=== PATIENT | male | born 1960 | race Caucasian/White ===

== ENCOUNTER 2017-08-13 09:01 | Day surgery (SDC) | payer OTHER, SELFPAY ==
[2017-08-10 09:32] VITALS: BMI 45.6
[2017-08-13] VITALS (7 sets, daily range): BP systolic 99–129; BP diastolic 43–72; PULSE 58–68; RESP 8–16; TEMP 36.3–37; O2SAT 93–96; BMI 45.6
[2017-08-13] MEDS: LACTATED RINGERS 1,000 ML 42 ML IV (11:06)
[2017-08-13] MEDS: CEFAZOLIN 2 GM/100 ML FROZ.PIGGY IV (11:35)
[2017-08-13] MEDS: BUPIVACAINE 0.5% W/ EPI (PF) 30 ML VIAL INJ (12:15)
--- NOTE | 2017-08-13 12:22 | P.OP_ITS ---
Operative Date/Time/Diagnoses - Date of procedure: 08/13/17 Time of procedure: 12:20 Pre-op diagnosis: Left CTS Post-op diagnosis: same Procedure & Clinicians Procedure: Left carpal tunnel release Same procedure as scheduled: Yes Indications: Left carpal tunnel Surgeon: Juwan Pérez Click Yes if Unassisted: Yes Anesthesia Type: General Operative Notes Findings: Compression of the median nerve at the carpal tunnel Closure Type: primary Specimen(s): none sent Estimated Blood Loss (mL): 0 Blood products transfused: none Tourniquet time (min): 10 Procedure in detail: On date of service, the patient was met in the holding area. Patients operative site was signed and witnessed by the OR staff. The surgery was once again discussed with the patient, and any remaining questions they had were answered fully. Patient was taken back to the operating theater and placed on the operating table in a supine position. Great care was taken to ensure that all bony prominences were carefully padded. A well-padded tourniquet was placed up along the upper extremity. A timeout was performed to verify patient's name, procedure, and operative site. The arm was then prepped and draped in the normal sterile fashion. A 15 blade was used to incise through skin In the center of the palm. Pickups and tenotomy scissors were used to dissect down until the palmar fascia was visualized. The palmar fascia was then sharply incised using a 15 blade. This gave us good visualization of the carpal ligament. A small opening was made into the carpal ligament, and a curved hemostat was placed into that opening. A 15 blade was then used to sharply incise the carpal ligament with the structures beneath being protected by the hemostat. Pickups and Metzenbaum scissors were used to complete the decompression both distally and proximally. This provided a complete decompression of the median nerve. The wound was then irrigated and closed with nylon. The hand was then cleaned, dried, and dressed. Patient was taken to the PACU in stable condition. Complications: none Condition: stable Disposition: PACU Plan for aftercare: No restrictions of range of motion. No lifting more than 2- 3 lb for 2 weeks.
--- NOTE | 2017-08-13 13:39 | SUR.PHASEII ---
addendum: Dr. Edwards notified patient's [facility] 191, ok for pt to d/c and resume home diabetes medications. Pt and spouse notified, recommended pt check cbg today before medications, patient agreeable.
== END 2017-08-13 13:00 | disposition home or self-care (01) ==
PROVIDERS: PCP Internal Medicine; Visit Provider Orthopaedic Surgery
PROC: (CPT 64721; principal; 2017-08-13 10:45)
DX: G56.02 Carpal tunnel syndrome, left upper limb (principal); I10 Essential (primary) hypertension; G47.33 Obstructive sleep apnea (adult) (pediatric); E11.9 Type 2 diabetes mellitus without complications; Z79.4 Long term (current) use of insulin; E66.9 Obesity, unspecified; Z68.42 Body mass index [BMI] 45.0-49.9, adult
CPT/HCPCS: 64721; J0690; J2704; J3010

== ENCOUNTER 2020-01-09 12:58 | Observation (INO) | payer OTHER, SELFPAY ==
[2020-01-01 12:52] VITALS: BMI 43.4
[2020-01-08] VITALS (16 sets, daily range): BP systolic 145–189; BP diastolic 44–95; PULSE 68–82; RESP 9–131; TEMP 36.1–37.5; O2SAT 0–100; BMI 42.2
--- NOTE | 2020-01-08 | DI.RAD.S_ITS ---
PROCEDURE: XR PELVIS 1-2V INDICATIONS: INNER OP FILM TECHNIQUE: Intra-operative view of the pelvis and hip acquired. COMPARISON: None. FINDINGS: Bones: Intraoperative devices prior to completion of arthroplasty prostheses are in expected positions. No fractures or suspicious bony lesions. Soft tissues: Overlying surgical retractors are present, along with other intraoperative changes. IMPRESSION: Expected intraoperative appearance, during right total hip arthroplasty Dictated by: Eliceo Cardona M.D. on 01/08/2020 at 13:15 Approved by: Eliceo Cardona M.D. on 01/08/2020 at 13:16
[2020-01-08] MEDS: ACETAMINOPHEN 325 MG TABLET 975 MG PO (09:05)
[2020-01-08] MEDS: LACTATED RINGERS 1,000 ML 42 ML IV ×2 (09:06→12:40)
[2020-01-08] MEDS: PREGABALIN 75 MG CAPSULE PO (09:06)
[2020-01-08] MEDS: CELECOXIB 200 MG CAPSULE PO (09:06)
[2020-01-08] MEDS: VANCOMYCIN 1,000 MG/200 ML PIGGYBACK 200 MG IV (09:37)
--- NOTE | 2020-01-08 10:18 | P.OP_ITS ---
Operative Date/Time/Diagnoses Date of procedure: 01/08/20 Time of procedure: 10:59 Pre-op diagnosis: Severe right hip OA Post-op diagnosis: same Procedure & Clinicians Procedure: Right total hip arthroplasty posterior approach Same procedure as scheduled: Yes Indications: The patient has had progressively worsening right hip pain with radiographic changes consistent with arthritis. Non-operative management has failed and the patient has requested total hip replacement. The risks, benefits and alternatives to surgery were discussed with the patient prior to proceeding. Risks discussed included, but were not limited to, failure to relieve pain, leg length discrepancy, dislocation, stiffness, infection, nerve damage, deep venous thrombosis, pulmonary embolism, stroke, coma, heart attack, permanent paralysis and , as well as the potential need for eventual revision of the prosthetic. Surgeon: Lauren Gross Cell Stripper Final: Tye Kingsley Anesthesia Type: General Operative Notes Findings: Severe right hip osteoarthritis, adequate stability, adequate bone Closure Type: primary Specimen(s): none sent Prosthetic devices, grafts, tissues, transplants, or devices: Gross and nephew 8 standard anthology offset, 56 R3 cup, two 6.5 mm screws, + 0 Oxinium head Applied: drain(s) Estimated Blood Loss (mL): 250 Blood products transfused: none Procedure in detail: The patient was seen in the pre-operative area, where the patient identified the right hip as the operative site and this was marked with my initials. The patient received pre-operative antibiotics and was taken to the operating room and placed on the operative table in the left lateral decubitus position after satisfactory anesthesia. A biomass boiler operator out was performed. The right leg was prepared from the ankle to the iliac crest with ChloroPrep in the usual fashion and draped through sterile drapes. The hip was approached through an approximately 20 cm incision centered over the greater trochanter and curving gently posteriorly as it went proximally. This was carried sharply to the fascia krysten, which was divided and retracted with a self retaining retractor. The trochanteric bursa was excised with care being taken to avoid the sciatic nerve, which was identified and protected throughout the case. The short external rotators were incised and the capsulomuscular flap was raised and tagged for later repair. The hip was dislocated, and a femoral neck osteotomy performed approximately 15 mm above the lesser trochanter. Retractors were placed around the femur. The canal was opened with a box cutti ng osteotome, followed by a T handled reamer and a lateralizing reamer. The chili pepper broach was then used, followed by sequential broaching until there was good stability of the broach in the femur. Retractors were placed to expose the acetabulum. The labrum and central soft tissues were removed. Reaming was performed initially going up in 2 mm increments, then 1 mm increments until good bite was obtained with an odd sized reamer. The cup 1 mm larger than the last reamer was then inserted using the appropriate anteversion guides. It was further stabilized with two 6.5 mm screws. A trial neutral liner was placed. The broach was placed in the canal. A trial head and neck were then placed and the hip relocated and checked for leg length and stability. An intraoperative film confirmed the component position and no evidence of fracture. The patient was stable in the position of sleep, of squatting, and could be put through a range of motion with 45 degrees internal rotation without dislocation. At 90 degrees flexion, internal rotation to 70? was possible before dislocation. This was felt to be satisfactory and the appropriate components were opened, and the trials were removed. The acetabular liner was impacted into position. The final stem was then impacted into the prepared femoral canal. A brief Betadine soak was performed while trialing with head options. The hip was meticulously irrigated with normal saline. Finally the femoral head was impacted onto the stem. The acetabulum was cleared of all material and the hip relocated one final time. The capsulomuscular flap was then repaired to the greater trochanter though an awl hole using the tag sutures. The short external rotators were repaired with a nonabsorbable suture. A deep drain was placed and brought out anteriorly. The fascia krysten was closed with Vicryl. The subcutaneous layer was closed with barbed sutures and SteriStrips. An Aquacel Ag dressing was applied and the patient was taken to recovery having tolerated the procedure well. Complications: none Post-operative Condition: stable Disposition: Acute Care Plan for aftercare: The patient will be maintained on a standard total hip replacement protocol with weight bearing as tolerated and posterior hip precautions. The patient will receive Aspirin and sequential compression devices for DVT prophylaxis. The patient will be discharged home when safe for the home environment.
--- NOTE | 2020-01-08 10:18 | PM.PREOP ---
Pre-operative Note COVID-19 COVID-19 status: Negative Interval Note History & Physical reviewed/Exam performed by Physician: Yes Changes to H&P: No
--- NOTE | 2020-01-08 10:40 | DI.RAD.S_ITS ---
PROCEDURE: XR HIP W PEL IF DONE RT 2V INDICATIONS: post operative films TECHNIQUE: AP pelvis and lateral view of the right hip acquired. COMPARISON: None. FINDINGS: Bones: Patient is status post right hip arthroplasty, with hardware components in expected positions. The hip joint appears congruent. The visualized bony structures appear intact. Soft tissues: Overlying postoperative changes are noted. No suspicious soft tissue densities. IMPRESSION: Normal alignment after right total hip arthroplasty. Mild degenerative osteoarthritis at the [place] left hip. Dictated by: Shawn Solis M.D. on 01/08/2020 at 14:12 Approved by: Shawn Solis M.D. on 01/08/2020 at 14:13
[2020-01-08] MEDS: CEFAZOLIN 2 GM/100 ML FROZ.PIGGY IV (10:48)
[2020-01-08] MEDS: CEFAZOLIN 1 GM VIAL IV (11:15)
--- NOTE | 2020-01-08 11:18 | SUR.OPER ---
Lateral on padded OR bed. Gel axillary roll. Arms secured on padded armboard with pillow on alejandre stand supporting top arm. Padded hip positioner braces x4 - anterior and posterior chest and pelvis. Additional gel pad used anterior pelvis. Gel pad under bottom leg from knee to foot and secured with tape over sheet.
[2020-01-08] MEDS: SODIUM CHLORIDE IRRIG SOLUTION 250 ML, POVIDONE-IODINE SPONGE STICKS 1 APPLIC IRR (11:21)
[2020-01-08] MEDS: TRANEXAMIC ACID 1,000 MG VIAL 1000 MG INJ (11:21)
[2020-01-08] MEDS: BUPIVACAINE LIPOSOME 266 MG/20 ML VIAL INJ (11:21)
[2020-01-08] MEDS: BUPIVACAINE 0.25% W/ EPI (PF) 10 ML VIAL 20 ML INJ (11:25)
[2020-01-08] MEDS: EPINEPHrine 1 MG/ML IRR (11:47)
[2020-01-08] MEDS: fentaNYL 100 MCG/2 ML INJ IV ×2 (13:32→13:37)
[2020-01-08] MEDS: HYDROMORPHONE 2 MG INJ IV ×4 (13:37→13:58)
[2020-01-08] MEDS: OXYCODONE/ACETAMINOPHEN 5/325 TABLET 1 TAB PO (14:10)
--- NOTE | 2020-01-08 14:29 | SUR.PHASEI ---
Report called to Priya
[2020-01-08] MEDS: LACTATED RINGERS 1,000 ML 125 ML IV (14:45)
--- NOTE | 2020-01-08 14:55 | SUR.PHASEI ---
Patient transferred to the floor with dentures, belongings bag and CPAP. Report given to Priya. Patient transferred to the bed with a slider board. IV saline locked. Right hip dressing CDI. Green light flashing on olga drain, HV patent. VS stable.
[2020-01-08] MEDS: GABAPENTIN 300 MG CAPSULE 600 MG PO (16:58)
[2020-01-08] MEDS: OXYCODONE IR 5 MG TABLET 15 MG PO ×2 (16:59→20:05)
[2020-01-08] MEDS: IBUPROFEN 400 MG TABLET PO ×2 (16:59→23:01)
[2020-01-08] MEDS: METFORMIN 850 MG TABLET PO (17:01)
[2020-01-08] MEDS: MORPHINE ER 100 MG TABLET PO (17:22)
[2020-01-08] MEDS: INSULIN GLARGINE 100 UNIT/ML 3ML PEN 40 UNIT SUBCUT (17:22)
--- NOTE | 2020-01-08 17:28 | PT.IIE ---
Current Diagnoses Unilateral primary osteoarthritis, right hip (01/08/20) Surgery Performed Operation Date: 01/08/20 10:45 Actual Procedures p Total Hip Arthroplasty(Right) - Lauren Gross MD Surgical History (Last Updated 01/01/20 @ 12:55 by Marilyn Lomax RN) History of arthroplasty of left knee (Acute) History of arthroscopy of both knees (Acute) History of carpal tunnel surgery of left wrist (Acute 08/13/17) History of lumbar surgery (Acute) Hx of cholecystectomy (Acute) Hx of fusion of cervical spine (Acute) Hx of hand surgery (Acute) Hx of tonsillectomy (Acute) Status post trigger finger release (Acute) Medical History (Last Updated 01/01/20 @ 12:57 by Marilyn Lomax RN) Anxiety (Acute) Darden's esophagus (Acute) Chronic pain (Acute) Cirrhosis of liver 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 (Acute) Depression (Acute) Diabetes (Acute) History of ETOH abuse (Acute) HTN (hypertension) (Acute) Hyperlipidemia (Acute) MRSA (methicillin resistant Staphylococcus aureus) (Acute) Numbness (Acute) Paroxysmal A-fib (Acute) Rash (Acute) Sleep apnea with use of continuous positive airway pressure (CPAP) (Acute) Physical Therapy Inpatient Evaluation/Re-Eval M1 PT/OT-IP Prior Functional Status Start: 01/08/20 15:28 Freq: NEEDED Status: Active Protocol: Document 01/08/20 16:59 AW (Rec: 01/08/20 17:28 AW [id number]) Medical Review Prior Functional Status Medical History Reviewed Yes Communication WNL. Pt is an effective verbal communicator. Mobility and Gait Pt uses a FWW for all mobility with a maximum distance of < 200 feet. Activities of Daily Living and IADL's Pt's spouse assists with lower body dressing. Pt states he is independent with all other ADL's. His provides assist with all IADL's. Prior Functional Level (Other details) Pt has history of multiple orthopedic surgeries, including cervical, lumbar, shoulder, wrist, and knee. He has chronic back pain which he manages with regular opioid use. Social History Household Members spouse Living Arrangements Mobile home Number of Floors (Floors) One Floor Number of Stairs To Enter/Railing? Level entrance from back door. Pt is able to park close to back door and can access the entrance via sidewalk. Home Environment High Toilet,Walk in Shower Home Equipment Front Wheel Walker,Four Wheel Walker,Shower Seat without Backrest,Long Handled Shoe Horn,Level Vial Inside Grinder,Sock Aid,Lift Recliner,Grab Bars Near Toilet ,Grab Bars In Shower Additional Social History Comment Pt has an adjustable bed. He lives with his who will be available and able to assist at discharge. Pt's elderly parents live in a separate home on the same property. M2 PT-IP Current Condition Start: 01/08/20 15:28 Freq: NEEDED Status: Active Protocol: Document 01/08/20 16:59 AW (Rec: 01/08/20 17:28 AW [id number]) Physical Therapy Current Condition Current Condition Evaluation Date 01/08/20 Treatment Diagnosis R MARY with posterior approach; difficulty in walking Onset Date 01/08/20 Precautions Posterior Hip Precautions No Hip Flexion > 90 degrees,No Hip Internal Rotation,No Hip Adduction Weight Bearing Status Weight Bearing Status Weight Bear as Tolerated M3 PT-IP Subjective Start: 01/08/20 15:28 Freq: NEEDED Status: Active Protocol: Document 01/08/20 16:59 AW (Rec: 01/08/20 17:28 AW [id number]) Subjective Physical Therapy Visit Type Type Initial Evaluation Visit Start Time 15:57 Visit Stop Time 16:50 Total Visit Minutes 53 Notes Pt's arrived at end of session. Physical Therapy Visit Comments Patient Comments Sure, I'll try to get up. I think I need to pee. Therapy Pain Assessment Pain When Pain Assessed During Mobility Pain Present Pain Present Pain Reported Location right hip Intensity 7 Scale Used 6/10 at rest; 7/10 with mobility Pain Management Techniques Re-positioning,Timing of Activity with Medications M4 PT-IP Mobility and Gait Start: 01/08/20 15:28 Freq: NEEDED Status: Active Protocol: Document 01/08/20 16:59 AW (Rec: 01/08/20 17:28 AW [id number]) PT-Bed Mobility Assessment Supine to Sit Supine to Sit Maximum Assistance,1 Person Assistance,Head of Bed Elevated,Bedrails Sit to Supine Sit to Supine Maximum Assistance,1 Person Assistance Scooting Scooting to Edge of Bed Moderate Assistance Scooting Up and Down in Bed Maximum Assistance PT-Transfer Assessment Sit to and From Stand Sit to and from Stand Maximum Assistance,1 Person Assistance,Use of Upper Extremities Comments Mobility Comments Pt was lying in the bed as PT arrived. BP was 161/96 in supine. Pt has an adjustable bed at home. With HOB elevated , pt began moving his legs toward the right side of the bed but required assist to support his operative leg and heavy use of bed rails to achieve upright position. Bed mobility was slow and labored. In the process of scooting toward EOB with mod A x 1, pt' s IV dislodged from the dorsum of his right hand. PT called RN who assessed and removed the IV to be replaced later. Pt stood from the bed with max A x 1 and FWW. He complained of increased pain but was able to stand with heavy weightbearing on the walker and assist for balance. Weight shifting was limited due to pain. Pt needed to sit after ~ 1 minute. He stood again with max A x 2 for safety with REEL CUTTER providing mobility assist. He stood several minutes and was able to void into a urinal which was held by the REEL CUTTER as pt continued to support himself on the walker. Pt then took several side steps toward the HOB with minimal weight shifting and very short steps. Pt sat and completed sit to supine with max assist. He was minimally able to bridge his hips to assist with positioning and needed a 2- person assist to scoot up in the bed. Pt was left with REEL CUTTER attending. Gait Assessment Gait Gait Assistance Required: Maximum Assistance,1 Person Assist Distance (Feet) 3 Able to Maintain Weight Bearing Status Yes During Gait Assistive Devices Assistive Device Gait Belt,Front Wheeled Walker Orthotic/Prosthetic Devices or Brace: No Gait Deviations General Gait Pattern Antalgic,Decreased Stride Length,Decreased Feet Clearance Factors Limiting Gait Function Factors Limiting Gait Function Decreased Activity Tolerance, Decreased Strength,Difficulty Following Directions,Limited Range of Motion,Pain,Poor Balance,Poor Safety Awareness Comments Gait Comments Side stepping at bedside only. See mobility comments. Stair Climbing Assessment Comments Stair Climbing Comments Not assessed. Pt does not need to climb stairs at home. PT-Balance Assessment Sitting Balance and Reactions Static Sitting Balance Ability Good Dynamic Sitting Balance Ability Fair Standing Balance and Reactions Static Standing Balance Ability Poor Dynamic Standing Balance Ability Poor Device Used FWW M5 PT-IP Objective Assessments Start: 01/08/20 15:28 Freq: NEEDED Status: Active Protocol: Document 01/08/20 16:59 AW (Rec: 01/08/20 17:28 AW [id number]) Orientation Orientation/Cognition Level of Alertness Alert Orientation Name,Day of Week,Place, Situation Language Function Ability No Deficits Noted Safety Awareness Decreased Safety Awareness Memory Description No Deficits Noted Gross Range of Motion Lower Extremity ROM Assessment Right Impaired Strength Lower Extremity Strength Assessment Bilaterally Impaired Hip L 4-/5; R 3-/5 Knee L 4/5; R 4-/5 Ankle B 4-/5 Sensation Assessment Sensation Gross Sensation Right LE Impaired Comments Sensation Comments Pt reports dull sensation to plantar surface of right foot. Muscle Tone Muscle Tone WNL Yes M6 PT-IP Treatment Start: 01/08/20 15:28 Freq: NEEDED Status: Active Protocol: Document 01/08/20 16:59 AW (Rec: 01/08/20 17:28 AW [id number]) Physical Therapy Treatment Exercises Exercises Ankle Pumps,Heel Slides Education Education Provided Precautions,Weight Bearing Status,Post-Op Packet,Safety Other Treatments Other Treatment Performed Provided education on role of PT, plan of care, weightbearing status, posterior hip precautions, and safe use of FWW. M7 PT-IP Assessment and Plan Start: 01/08/20 15:28 Freq: NEEDED Status: Active Protocol: Document 01/08/20 16:59 AW (Rec: 01/08/20 17:28 AW [id number]) PT Summary Assessment and Plan Potential Rehabilitation Potential Fair Status of Condition at Evaluation Evolving Summary Impairments Pain,ROM,Strength,Balance,Bed Mobility,Transfers,Gait, Activity Tolerance Assessment Summary Nahid is a 59 yo man seen for PT evaluation on POD0 following R MARY with posterior approach. He uses a walker for all mobility at baseline and endorses a maximum ambulation distance of ~200 feet. On evaluation, pt required max assist of 1-2 people for bed mobility, sit to stand, and side stepping with FWW at bedside. Pain is his primary limitation at this time. His obesity and chronic opioid use may also affect the course of his recovery. Depending on progress, pt may be safe to discharge home with assist and outpatient PT, but further assessment will be needed to determine optimal discharge recommendation. Goals Bed Mobility Goal Standby Assistance Transfer Goal Standby Assistance,Front Wheeled Walker Gait Goal Standby Assistance,Front Wheel Walker Gait Distance 120 Days to Meet Goals 5 Frequency of Treatment Frequency Of Treatment Twice a Day Treatment Plan Physical Therapy Treatment Plan Bed Mobility Training,Transfer Training,Gait Training, Therapeutic Exercise,Balance Retraining,Post Op Education, Discharge Planning,Hot or Cold Pack,Neuromuscular Re-ed, Coordination Retraining,Manual Therapy Recommendations To Nursing Amount of Assist Needed 2 Person Assist Discharge Recommendations PT Discharge Recommendations Home with Assistance,Home with 24/ Assist,Outpatient PT Transportation Needs at Discharge Private Vehicle
[2020-01-08] MEDS: ASPIRIN EC 81 MG TABLET PO (20:04)
[2020-01-08] MEDS: GABAPENTIN 600 MG TABLET PO (20:04)
[2020-01-08] MEDS: buPROPion SR 150 MG TAB PO (20:04)
[2020-01-08] MEDS: CHOLECALCIFEROL (VITAMIN D3) 1,000 UNIT TABLET 2000 UNIT PO (20:04)
[2020-01-08] MEDS: METOPROLOL IR 25 MG TABLET PO (20:04)
[2020-01-08] MEDS: FAMOTIDINE 20 MG TABLET 10 MG PO (20:05)
[2020-01-08] MEDS: ACETAMINOPHEN 325 MG TABLET 650 MG PO (20:05)
[2020-01-08] MEDS: DOCUSATE 100 MG CAPSULE PO (20:05)
[2020-01-08] MEDS: CEFAZOLIN VIAL 3 GM in SODIUM CHLORIDE 0.9% 100 ML 200 ML IV (20:06)
[2020-01-08] MEDS: LOVASTATIN 20 MG TABLET PO (20:06)
[2020-01-08] MEDS: OXYCODONE IR 5 MG TABLET PO (23:01)
[2020-01-09] VITALS: BP 162/79; PULSE 73; RESP 16; TEMP 36.2; O2SAT 94
[2020-01-09] MEDS: IBUPROFEN 400 MG TABLET PO ×6 (01:15→20:58)
[2020-01-09] MEDS: LACTATED RINGERS 1,000 ML 125 ML IV (02:14)
[2020-01-09] MEDS: MORPHINE ER 100 MG TABLET PO ×2 (03:01→14:19)
[2020-01-09] MEDS: CEFAZOLIN VIAL 3 GM in SODIUM CHLORIDE 0.9% 100 ML 200 ML IV (03:01)
[2020-01-09] MEDS: OXYCODONE IR 5 MG TABLET PO (05:40)
[2020-01-09 06:00] VITALS: BP 131/71; PULSE 68; RESP 16; TEMP 36.4; O2SAT 96
[2020-01-09 08:00] VITALS: BP 148/91; PULSE 62; RESP 17; TEMP 37.1; O2SAT 96
--- NOTE | 2020-01-09 10:04 | PM.PNPO.1 ---
Subjective Subjective Date Patient Seen: 01/09/20 Time Patient Seen: 10:05 Interval history: Patient's pain is moderate to severe. Denies fever /chills. No nausea/ vomiting. Exam Vital Signs (past 8 hours): - 01/09/20 06:00 01/09/20 08:00 Temperature 97.5 F L 98.7 F Pulse Rate 68 62 Respiratory Rate 16 17 Blood Pressure 131/71 148/91 H Pulse Oximetry 96 96 Oxygen Delivery Method CPAP Oxygen Flow Rate 0 Narrative Exam Narrative: 59-year-old male resting comfortably in bed in no apparent distress. Right hip dressing is clean, dry and intact. Alicia dressing on and functioning. Sensation grossly intact to light touch distal right lower extremity. Motor functions intact distal right lower extremity. Both legs are warm and dry. Objective Labs Result Diagrams: 01/09/20 04:50 Labs: Laboratory Results - last 24 hr 01/09/20 04:50 Hgb 11.0 L Hct 34.0 L Assessment & Plan Post-op Postoperative Procedures: Procedures Operation Date: 01/08/20 10:45 Actual Procedures Side Surgeon p Total Hip Arthroplasty Right Lauren Gross MD Postop day 1 status post right total hip arthroplasty, posterior approach. Patient will be maintained on standard total hip replacement protocol with weight-bearing as tolerated and posterior hip precautions. Aspirin b.i.d.. Morbid obesity with BMI of 42 will make rehab/mobilizing difficult. Patient currently requiring 2 person assist with physical therapy. Patient will continue to rehab with physical therapy and possible discharge home tomorrow. Quality VTE Deep Vein Thrombosis/Pulmonary Embolism Present on Admission: No
[2020-01-09] MEDS: CHOLECALCIFEROL (VITAMIN D3) 1,000 UNIT TABLET 2000 UNIT PO ×2 (10:34→21:00)
[2020-01-09] MEDS: MULTIVITAMIN 1 TABLET 1 TAB PO (10:34)
[2020-01-09] MEDS: lisinopriL 20 MG TABLET 40 MG PO (10:34)
[2020-01-09] MEDS: GABAPENTIN 600 MG TABLET PO ×3 (10:34→20:58)
[2020-01-09] MEDS: ASPIRIN EC 81 MG TABLET PO ×2 (10:34→21:00)
[2020-01-09] MEDS: CALCIUM CITRATE 200 MG TABLET PO (10:34)
[2020-01-09] MEDS: METFORMIN 850 MG TABLET PO ×2 (10:35→17:05)
[2020-01-09] MEDS: DOCUSATE 100 MG CAPSULE PO ×2 (10:35→20:59)
[2020-01-09] MEDS: OXYCODONE IR 5 MG TABLET 15 MG PO ×4 (10:35→20:59)
[2020-01-09] MEDS: FAMOTIDINE 20 MG TABLET 10 MG PO ×2 (10:35→20:59)
[2020-01-09] MEDS: ACETAMINOPHEN 325 MG TABLET 650 MG PO ×3 (10:36→20:58)
[2020-01-09] MEDS: METOPROLOL IR 25 MG TABLET PO ×2 (10:42→20:57)
[2020-01-09] MEDS: buPROPion SR 150 MG TAB PO ×2 (10:42→20:59)
[2020-01-09] MEDS: glipiZIDE XL 5 MG TAB PO (10:43)
--- NOTE | 2020-01-09 10:43 | PT.IPTN ---
Current Diagnoses Unilateral primary osteoarthritis, right hip (01/08/20) Surgery Performed Operation Date: 01/08/20 10:45 Actual Procedures p Total Hip Arthroplasty(Right) - Lauren Gross MD Physical Therapy Treatment Note M2 PT-IP Current Condition Start: 01/08/20 15:28 Freq: NEEDED Status: Active Protocol: Document 01/08/20 16:59 AW (Rec: 01/08/20 17:28 AW [id number]) Physical Therapy Current Condition Current Condition Evaluation Date 01/08/20 Treatment Diagnosis R MARY with posterior approach; difficulty in walking Onset Date 01/08/20 Precautions Posterior Hip Precautions No Hip Flexion > 90 degrees,No Hip Internal Rotation,No Hip Adduction Weight Bearing Status Weight Bearing Status Weight Bear as Tolerated M3 PT-IP Subjective Start: 01/08/20 15:28 Freq: NEEDED Status: Active Protocol: Document 01/09/20 10:15 KS (Rec: 01/09/20 11:21 KS [id number]) Subjective Physical Therapy Visit Type Type Treatment Note Visit Start Time 10:15 Visit Stop Time 10:43 Total Visit Minutes 28 Number of BUSINESS MANAGEMENT SPECIALIST Visits 1 Physical Therapy Visit Comments Patient Comments Pt agreeable to work w/ therapy and present during treatment. Therapy Pain Assessment Pain When Pain Assessed During Mobility Pain Present Pain Present Pain Reported Location right hip Intensity 7 Scale Used 6/10 at rest; 7/10 with mobility Description Tightness Pain Behaviors Calling Out,Facial Grimacing, Guarding,Holding Area, Restlessness,Wincing Pain Management Techniques Re-positioning,Timing of Activity with Medications M4 PT-IP Mobility and Gait Start: 01/08/20 15:28 Freq: NEEDED Status: Active Protocol: Document 01/09/20 10:15 KS (Rec: 01/09/20 11:21 KS [id number]) PT-Bed Mobility Assessment Supine to Sit Supine to Sit Minimal Assistance,1 Person Assistance,Head of Bed Elevated,Bedrails Sit to Supine Sit to Supine Moderate Assistance,1 Person Assistance,Head of Bed Elevated,Bedrails Scooting Scooting to Edge of Bed Moderate Assistance Scooting Up and Down in Bed Maximum Assistance PT-Transfer Assessment Sit to and From Stand Sit to and from Stand Minimal Assistance,1 Person Assistance,Use of Upper Extremities Equipment Transfer Assistive Device Gait Belt,Front Wheeled Walker Orthotic/Prosthetic Devices or Brace: No Transfers Transfer Destination Bed Transfer Technique pt ambulated w/ FWW Transfer Ability Level of Assist Minimal Assistance,Moderate Assistance,1 Person Assistance ,Use of Upper Extremities Comments Mobility Comments Pt in bed upon arrival from therapy. Min A and max cues for sup<>sit w/ HOB elevated and bed rails. Pt used gait belt to self assist RLE out of bed. Mod A for scooting to EOB. Pt then sit<>Stand Min A and took two lateral steps towards L to and used urinal. Pt maintained standing balance ~4 min while attempting to void, after voiding, pt was able to tolerate ~5 lateral steps w/ FWW towards HOB w/ CGA and cues. Pt stand<>sit Min A, he then completed additional sit<>stand Min A and cues for change of linens. Min A and cues for leg placement and sequencing for stand<>sit. Mod A for sit<>sup , Max A x2 for scooting up in bed. Pt left in bed w/ all needs in reach and SCDs on. Gait Assessment Gait Gait Assistance Required: Contact Guard Assist,Minimum Assistance,1 Person Assist Distance (Feet) 7 Able to Maintain Weight Bearing Status Yes During Gait Assistive Devices Assistive Device Gait Belt,Front Wheeled Walker Orthotic/Prosthetic Devices or Brace: No Gait Deviations General Gait Pattern Antalgic,Decreased Stride Length,Decreased Feet Clearance Factors Limiting Gait Function Factors Limiting Gait Function Decreased Activity Tolerance, Decreased Strength,Difficulty Following Directions,Limited Range of Motion,Pain,Poor Balance,Poor Safety Awareness Comments Gait Comments Lateral steps at bedside only. See mobility comments. Stair Climbing Assessment Comments Stair Climbing Comments Not assessed. Pt does not need to climb stairs at home. PT-Balance Assessment Sitting Balance and Reactions Static Sitting Balance Ability Good Dynamic Sitting Balance Ability Fair Standing Balance and Reactions Static Standing Balance Ability Fair Dynamic Standing Balance Ability Poor Device Used FWW M5 PT-IP Objective Assessments Start: 01/08/20 15:28 Freq: NEEDED Status: Active Protocol: Document 01/08/20 16:59 AW (Rec: 01/08/20 17:28 AW [id number]) Orientation Orientation/Cognition Level of Alertness Alert Orientation Name,Day of Week,Place, Situation Language Function Ability No Deficits Noted Safety Awareness Decreased Safety Awareness Memory Description No Deficits Noted Gross Range of Motion Lower Extremity ROM Assessment Right Impaired Strength Lower Extremity Strength Assessment Bilaterally Impaired Hip L 4-/5; R 3-/5 Knee L 4/5; R 4-/5 Ankle B 4-/5 Sensation Assessment Sensation Gross Sensation Right LE Impaired Comments Sensation Comments Pt reports dull sensation to plantar surface of right foot. Muscle Tone Muscle Tone WNL Yes M6 PT-IP Treatment Start: 01/08/20 15:28 Freq: NEEDED Status: Active Protocol: Document 01/09/20 10:15 KS (Rec: 01/09/20 11:21 KS [id number]) Physical Therapy Treatment Education Education Provided Precautions,Weight Bearing Status,Post-Op Packet,Safety M7 PT-IP Assessment and Plan Start: 01/08/20 15:28 Freq: NEEDED Status: Active Protocol: Document 01/09/20 10:15 KS (Rec: 01/09/20 11:21 KS [id number]) PT Summary Assessment and Plan Potential Rehabilitation Potential Fair Status of Condition at Evaluation Evolving Summary Impairments Pain,ROM,Strength,Balance,Bed Mobility,Transfers,Gait, Activity Tolerance Progress Towards Goals Slow Progress due to Pain,Slow Progress due to Medical Issues,Slow Progress due to Activity Tolerance Assessment Summary Pt Min A for sup<>sit w/ HOB elevated, Mod A for scooting to EOB, but pt able to use gait belt to self assist RLE. Min A for sit<>stand, CGA to Min A for lateral steps at EOB . Pt tolerated ~7ft lateral steps w/ FWW and ~4 min standing balance while attempting to void. Pt will need to increase bed mobility, gait distance, and have caregiver training if d/c home . If pt does go home, he will need outpatient rehab to improve strength and ROM in RLE. Goals Bed Mobility Goal Standby Assistance Transfer Goal Standby Assistance,Front Wheeled Walker Gait Goal Standby Assistance,Front Wheel Walker Gait Distance 120 Days to Meet Goals 5 Frequency of Treatment Frequency Of Treatment Twice a Day Treatment Plan Physical Therapy Treatment Plan Bed Mobility Training,Transfer Training,Gait Training, Therapeutic Exercise,Balance Retraining,Post Op Education, Discharge Planning,Hot or Cold Pack,Neuromuscular Re-ed, Coordination Retraining,Manual Therapy Recommendations To Nursing Amount of Assist Needed 2 Person Assist Discharge Recommendations PT Discharge Recommendations Home with Assistance,Home with 24/7 Assist,Outpatient PT Transportation Needs at Discharge Private Vehicle
[2020-01-09] MEDS: polyethylene glycoL 3350 17 GM POWD.PACK PO (10:59)
[2020-01-09 12:12] VITALS: BP 150/95; PULSE 72; RESP 17; TEMP 36.6; O2SAT 92
--- NOTE | 2020-01-09 14:00 | PT.IPTN ---
Current Diagnoses Unilateral primary osteoarthritis, right hip (01/09/20) Surgery Performed Operation Date: 01/08/20 10:45 Actual Procedures p Total Hip Arthroplasty(Right) - Lauren Gross MD Physical Therapy Treatment Note M2 PT-IP Current Condition Start: 01/08/20 15:28 Freq: NEEDED Status: Active Protocol: Document 01/08/20 16:59 AW (Rec: 01/08/20 17:28 AW [id number]) Physical Therapy Current Condition Current Condition Evaluation Date 01/08/20 Treatment Diagnosis R MARY with posterior approach; difficulty in walking Onset Date 01/08/20 Precautions Posterior Hip Precautions No Hip Flexion > 90 degrees,No Hip Internal Rotation,No Hip Adduction Weight Bearing Status Weight Bearing Status Weight Bear as Tolerated M3 PT-IP Subjective Start: 01/08/20 15:28 Freq: NEEDED Status: Active Protocol: Document 01/09/20 13:35 KS (Rec: 01/09/20 16:24 KS [id number]) Subjective Physical Therapy Visit Type Type Treatment Note Visit Start Time 13:35 Visit Stop Time 14:00 Total Visit Minutes 25 Number of CONTRACT CLERK Visits 2 Physical Therapy Visit Comments Patient Comments Pt agreeable to work w/ therapy and present during treatment. M4 PT-IP Mobility and Gait Start: 01/08/20 15:28 Freq: NEEDED Status: Active Protocol: Document 01/09/20 13:35 KS (Rec: 01/09/20 16:24 KS [id number]) PT-Bed Mobility Assessment Supine to Sit Supine to Sit Contact Guard Assistance,1 Person Assistance,Head of Bed Elevated,Bedrails Sit to Supine Sit to Supine Minimal Assistance,1 Person Assistance,Head of Bed Elevated,Bedrails Scooting Scooting to Edge of Bed Contact Guard Assistance PT-Transfer Assessment Sit to and From Stand Sit to and from Stand Minimal Assistance,1 Person Assistance,Use of Upper Extremities Equipment Transfer Assistive Device Gait Belt,Front Wheeled Walker Orthotic/Prosthetic Devices or Brace: No Transfers Transfer Destination Bed Transfer Technique pt ambulated w/ FWW Transfer Ability Level of Assist Contact Guard Assistance,1 Person Assistance,Use of Upper Extremities Comments Mobility Comments Pt in bed upon arrival from therapy w/ in room. Pt CGA and cues for sup<>sit and scooting EOB w/ HOB elevated and hand rails. Pt Min A and cues for sequencing for sit<> Stand. Pt then ambulated ~10 ft w/ FWW CGA and cues. Pt then reported fatigue and requested to get back in bed. Min A for sit<>sup. Pt left in bed w/ all needs in reach and SCDs on. Gait Assessment Gait Gait Assistance Required: Contact Guard Assist,1 Person Assist Distance (Feet) 10 Able to Maintain Weight Bearing Status Yes During Gait Assistive Devices Assistive Device Gait Belt,Front Wheeled Walker Orthotic/Prosthetic Devices or Brace: No Gait Deviations General Gait Pattern Antalgic,Decreased Stride Length,Decreased Feet Clearance Factors Limiting Gait Function Factors Limiting Gait Function Decreased Activity Tolerance, Decreased Strength,Difficulty Following Directions,Limited Range of Motion,Pain,Poor Balance,Poor Safety Awareness Comments Gait Comments Pt ambulated ~10 ft w/ FWW and CGA w/ cues. High fatigue reported after 10 ft. Stair Climbing Assessment Comments Stair Climbing Comments Not assessed. Pt does not need to climb stairs at home. PT-Balance Assessment Sitting Balance and Reactions Static Sitting Balance Ability Good Dynamic Sitting Balance Ability Fair Standing Balance and Reactions Static Standing Balance Ability Fair Dynamic Standing Balance Ability Fair Device Used FWW M5 PT-IP Objective Assessments Start: 01/08/20 15:28 Freq: NEEDED Status: Active Protocol: Document 01/08/20 16:59 AW (Rec: 01/08/20 17:28 AW [id number]) Orientation Orientation/Cognition Level of Alertness Alert Orientation Name,Day of Week,Place, Situation Language Function Ability No Deficits Noted Safety Awareness Decreased Safety Awareness Memory Description No Deficits Noted Gross Range of Motion Lower Extremity ROM Assessment Right Impaired Strength Lower Extremity Strength Assessment Bilaterally Impaired Hip L 4-/5; R 3-/5 Knee L 4/5; R 4-/5 Ankle B 4-/5 Sensation Assessment Sensation Gross Sensation Right LE Impaired Comments Sensation Comments Pt reports dull sensation to plantar surface of right foot. Muscle Tone Muscle Tone WNL Yes M6 PT-IP Treatment Start: 01/08/20 15:28 Freq: NEEDED Status: Active Protocol: Document 01/09/20 13:35 KS (Rec: 01/09/20 16:24 KS [id number]) Physical Therapy Treatment Education Education Provided Precautions,Weight Bearing Status,Post-Op Packet,Safety M7 PT-IP Assessment and Plan Start: 01/08/20 15:28 Freq: NEEDED Status: Active Protocol: Document 01/09/20 13:35 KS (Rec: 01/09/20 16:24 KS [id number]) PT Summary Assessment and Plan Potential Rehabilitation Potential Fair Status of Condition at Evaluation Evolving Summary Impairments Pain,ROM,Strength,Balance,Bed Mobility,Transfers,Gait, Activity Tolerance Progress Towards Goals Slow Progress due to Pain,Slow Progress due to Medical Issues,Slow Progress due to Activity Tolerance Assessment Summary Pt showed improvement w/ bed mobility this PM> CGA for sup< >sit and scooting w/ HOB elevated and bed rails. Min A for transfers, CGA for small bout of ambulation. D/c plan depending on progress, if pt goes home he will need to continue to increase ambulation distance and complete caregiver training. Goals Bed Mobility Goal Standby Assistance Transfer Goal Standby Assistance,Front Wheeled Walker Gait Goal Standby Assistance,Front Wheel Walker Gait Distance 120 Days to Meet Goals 5 Frequency of Treatment Frequency Of Treatment Twice a Day Treatment Plan Physical Therapy Treatment Plan Bed Mobility Training,Transfer Training,Gait Training, Therapeutic Exercise,Balance Retraining,Post Op Education, Discharge Planning,Hot or Cold Pack,Neuromuscular Re-ed, Coordination Retraining,Manual Therapy Recommendations To Nursing Amount of Assist Needed 1 Person Assist Discharge Recommendations PT Discharge Recommendations Home with Assistance,Home with / Assist,Outpatient PT Transportation Needs at Discharge Private Vehicle
--- NOTE | 2020-01-09 14:18 | CM.DANOTE ---
DCP Assessment: EMR reviewed: Patient is a 59 yr old male who was admitted for Rt MARY preformed by Dr. Gross. patients PCP is Dr. Lane. CM met with patient at the bedside and patients Rosario was present at time of meeting. Cm/RN explained role. patient was alert and oriented x3 during visit. Patient currently lives in a single level trailor/manufactured home with 7 steps to get into the front door but no steps to get in the back door. patient states he is feeling good and was up walking around with few moments prior to Cm's meeting. Patient has Outpatient PT set up with [facility] in [facility] for next . I: powers and self pay Plan: D/C home with when medically stable. No HH needed and OP PT. No identified D/C planning needs noted at this time. CM department will follow. Sandra Gross RN Discharge Planning/Care Management CM Discharge Assessment Start: 01/09/20 14:15 Freq: Status: Active Protocol: Document 01/09/20 14:15 HS (Rec: 01/09/20 14:18 HS [id number]) Discharge Planning Assessment Assigned Manager Information Sandra Gross RN DPOA/Assigned Designee Name Rosario Carmona Contact Information [phone] Advance Directives? No: Declines further information History Provided By Patient,Significant Other Has Patient been admitted in last 30 No days? Prior Living Arrangements Mobile home Household Members spouse Type of transporation used prior to Relies on Others admit Comment relies on others right now but plans on driving agian after he recovers Independent with ADL's Yes: only needs help with dressing bottom half. Is patient alert and oriented? Yes Caregiver for Another No Community Services used prior to Physical Therapy admission: DME Already Rented / Owned Bath Bench,FWW / Walker Patient/Family Preference OP PT Therapy Barriers to Discharge No Discharge Plan Home Referrals Initiated None needed Whiteboard Updated in Patient Room with Yes name and ext. # of Manager Information Review Status In Process Next Review Type Continued Stay Review Pre-Anesthesia Assessment Start: 01/01/20 12:52 Freq: Status: Active Protocol: Document 01/01/20 12:52 CAB (Rec: 01/01/20 13:32 CAB [id number]) Pre-Anesthesia Assessment Patient Information Reviewed Via Chart Review Comment Labs/EKG done, surgeon has, not available, COVID screen @ [facility] Primary Care Provider Leeann Lane Seen Specialist in Last 12 Months Yes Specialist Seen Orthopedist Primary Language Surinamese Noc Technician Required No Height 182.88 cm Weight 145.15 kg Body Mass Index (BMI) 43.4 Hearing Ability Normal Visual Assist Glasses Dentition Type Full- Upper & Lower Barriers to Learning None Other Aids Yes: CPAP Hx Anesthesia Reactions No Hx Family Anesthesia Reaction No Hx Malignant Hyperthermia No Hx Blood Transfusions No Anesthesia Review Requested No 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 No Does patient have CAMPOS/SOB No Hx Sleep Apnea Yes CPAP/BIPAP use prescribed and used routinely Will Bring CPAP/BIPAP DOS Yes Currently Taking a Beta Jasmina No Can You Climb a Flight of Stairs Without Yes SOB Hx Chest Pain No Hx SOB No Hx Syncope or Dizziness Yes: Dizziness Anti-Coagulant Therapy No Has a High Risk Ob No Cardiac Testing No Hx Pacemaker/ICD No Pacemaker Rep Required? 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 Presence of External or Internal Medical Yes: Cervical/lumbar hardware, Devices left knee Have you had any close contact with No someone diagnosed with COVID-19? Marital Status Lives With spouse Prior Living Arrangements Mobile home Support System Spouse Does the Patient Have Assistance After Yes Surgery Patient Discharge Plan Description Return Home Comment Pt not advised on length of stay per surgeon Feels Safe in Current Environment Yes Been Physically Hurt or Threatened By a No Person in Current Environment Do you have thoughts of harming yourself None or others? Are you currently considering suicide? No Do you have a plan to hurt yourself or No Plan others? Do You Have Any Spiritual Beliefs That No May Affect Your HC Choices? Do You Have Any Cultural Practices That No May Affect Your HC Choices? Who Can We Speak to About Patient's Care Family, friends Identifying Code for Release of Patient Declines to issue Information Health Care Proxy/Next of Kin Rosario () Health Care Proxy Emergency Contact Name Rosario Carmona () Emergency Contact Advance Directives? No: Declines further information Power of Flatware Maker No PAC Instructions Bring CPAP/BIPAP,Diabetes instructions,Durable medical equipment,Medications to take/ avoid,Nasal antibiotic,No ETOH /petroleum product on skin DOS ,NPO,Pre-surgical wash,Sturdy shoes/comfortable clothes,Do not bring valuables and remove jewelry
[2020-01-09 15:20] VITALS: BP 148/73; PULSE 67; RESP 19; TEMP 36.6; O2SAT 91
[2020-01-09] MEDS: INSULIN GLARGINE 100 UNIT/ML 3ML PEN 40 UNIT SUBCUT (17:06)
[2020-01-09 20:57] VITALS: BP 158/73; PULSE 68; RESP 17; TEMP 36.6; O2SAT 94
[2020-01-09] MEDS: LOVASTATIN 20 MG TABLET PO (20:57)
[2020-01-09] MEDS: SODIUM CHLORIDE 0.9% FLUSH 10 ML IV (21:05)
--- NOTE | 2020-01-09 23:00 | PC.NURSE ---
Addendum entered by Venecia Anderson R.N. 01/09/20 23:10: BGC 121, slightly elevated. Was given snacks after low BGC. Original Note: Pt AOx4, good mood. Pain level constant low level controlled by home medication regime, did not request PRNs on this shift. Lowest /10. 40 units Lantus given before dinner, glucose dropepd to 40. Recheck shows BG upped to appropriate levels.
[2020-01-10 00:11] VITALS: BP 157/85; PULSE 81; RESP 20; TEMP 36.3; O2SAT 93
[2020-01-10] MEDS: IBUPROFEN 400 MG TABLET PO ×4 (00:50→13:10)
[2020-01-10] MEDS: MORPHINE ER 100 MG TABLET PO (02:30)
[2020-01-10 05:22] VITALS: BP 152/73; PULSE 70; RESP 18; TEMP 36.1; O2SAT 94
[2020-01-10 08:00] VITALS: BP 155/66; PULSE 69; RESP 18; TEMP 36.2; O2SAT 95
[2020-01-10] MEDS: FAMOTIDINE 20 MG TABLET 10 MG PO (09:14)
[2020-01-10] MEDS: ACETAMINOPHEN 325 MG TABLET 650 MG PO (09:14)
[2020-01-10] MEDS: ASPIRIN EC 81 MG TABLET PO (09:14)
[2020-01-10] MEDS: MULTIVITAMIN 1 TABLET 1 TAB PO (09:15)
[2020-01-10] MEDS: buPROPion SR 150 MG TAB PO (09:15)
[2020-01-10] MEDS: GABAPENTIN 600 MG TABLET PO (09:15)
[2020-01-10] MEDS: SODIUM CHLORIDE 0.9% FLUSH 10 ML IV (09:17)
[2020-01-10] MEDS: DOCUSATE 100 MG CAPSULE PO (09:17)
[2020-01-10] MEDS: METFORMIN 850 MG TABLET PO (09:17)
[2020-01-10] MEDS: OXYCODONE IR 5 MG TABLET 15 MG PO ×2 (09:18→13:09)
--- NOTE | 2020-01-10 09:18 | PM.DS.1 ---
History of Present Illness History of Present Illness Date Patient Seen: 01/10/20 Time Patient Seen: 09:18 Chief complaint: RT MARY *OPB* Narrative: Please see HPI previously recorded in the chart. Discharge Providers Provider Date of admission: 01/09/20 12:58 Discharge Date: 01/10/20 Primary care physician: Leeann Lane Consults: 01/07/20 10:40 Consult to Anesthesiology Routine Comment: Consulting Provider: Anesthesiologist Reason for consultation: Regional block for post operative pain control 01/08/20 09:18 Consult to Respiratory Therapy Evaluate & Treat Comment: Physician Instructions: Evaluate and treat 01/08/20 14:51 Consult to Discharge Planning Routine Comment: Consult to Physical Therapy Evaluate & Treat Comment: Physician Instructions: post op MARY protocol Consult to Respiratory Therapy Evaluate & Treat Comment: Physician Instructions: Evaluate and treat Discharge provider: Apple Murguia PA-C Summary Hospital Course Discharge Diagnosis: s/p right posterior MARY Obesity Hospital Course: Arsen is a 59 year old male with PMH of HTN, DM, obesity and chronic pain who has had progressively worsening right hip pain with radiographic changes consistent with arthritis. Non-operative management has failed and the patient has requested total hip replacement. The risks, benefits and alternatives to surgery were discussed with the patient prior to proceeding. Risks discussed included, but were not limited to, failure to relieve pain, leg length discrepancy, dislocation, stiffness, infection, nerve damage, deep venous thrombosis, pulmonary embolism, stroke, coma, heart attack, permanent paralysis and , as well as the potential need for eventual revision of the prosthetic. After obtaining informed consent he was taken to the operating room where he underwent a right posterior MARY with Dr. Gross on 01/08/20 which he tolerated without complications. He was then transferred to the acute care floor where he has been progressing well postop. He was somewhat slow to mobilize on POD#1 and required 2 person assist. Pain was mostly controlled with his baseline dose of Morphine ER and Oxycodone IR. Jeffrey has been voiding appropriately and tolerating a diet. 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 He will be discharge with small supply of Dilaudid for breakthrough pain. He is stable for discharge to home on POD#2. Status at Discharge Cognitive/behavioral status at discharge: oriented Functional status at discharge: uses cane/walker Overall status at discharge: patient is progressing back to baseline Exam Vital Signs (past 8 hours): - 01/10/20 05:22 01/10/20 08:00 Temperature 97.0 F L 97.2 F L Pulse Rate 70 69 Respiratory Rate 18 18 Blood Pressure 152/73 H 155/66 H Pulse Oximetry 94 95 Oxygen Delivery Method Room Air Oxygen Flow Rate 0 Narrative Exam Narrative: 59 year old obese male resting in chair. Alert and oriented in no acute distress. FLACO in place over right hip is CDI and functional. Patient able to flex/extend the knee and ankle. Calves soft, nontender bilaterally. Objective Labs Result Diagrams: 01/09/20 04:50 Discharge Assessment & Plan Assessment and Plan Assessment: s/p right MARY Plan of Treatment: Discharge to home today Follow up outpatient in 2 weeks as scheduled Discharge Plan Discharge Plan Patient Disposition: Home Discharge orders & Medications Prescriptions: New acetaminophen 325 mg Tablet 650 mg PO TID Qty: 40 RF: 0 aspirin 81 mg Tablet,Delayed Release (Dr/Ec) 81 mg PO BID Qty: 40 RF: 0 ibuprofen 400 mg Tablet 400 mg PO Q4H Qty: 40 RF: 0 docusate sodium [DOK] 100 mg Capsule 100 mg PO BID Qty: 40 RF: 0 hydromorphone 4 mg Tablet 4 mg PO Q4HR PRN (Reason: Pain, Severe (7-10)) Qty: 20 RF: 0 Continued oxycodone 15 MG tablet 15 mg PO QID Qty: 0 RF: 0 glipizide 10 MG tablet extended release 24hr 5 mg PO AMCC Qty: 0 RF: 0 metformin 850 MG tablet 850 mg PO BIDCC Qty: 0 RF: 0 Touanamika SoloStar U-300 Insulin 300 UNIT/1 ML insulin pen 40 unit SQ QPM Qty: 0 RF: 0 bupropion HCl [Wellbutrin SR] 150 MG tablet extended release 12 hr 150 mg PO BID Qty: 0 RF: 0 gabapentin [Neurontin] 300 MG capsule 600 mg PO TID Qty: 0 RF: 0 lovastatin 20 MG tablet 20 mg PO HS Qty: 0 RF: 0 lisinopril 40 MG tablet 40 mg PO QDAY Qty: 0 RF: 0 triamcinolone acetonide 0.1 % ointment 1 escobar Topical PRN PRN (Reason: rash to knuckles, elbow) Qty: 0 RF: 0 multivitamin [Multiple Vitamins] 1 EACH tablet 1 tab PO QDAY Qty: 0 RF: 0 calcium citrate 250 MG tablet 250 mg PO QDAY Qty: 0 RF: 0 cholecalciferol (vitamin D3) [Vitamin D3] 2,000 UNIT capsule 2,000 iu PO BID Qty: 0 RF: 0 aspirin 81 mg Tablet,Delayed Release (Dr/Ec) 81 mg PO DAILY RF: 0 metoprolol tartrate 25 mg Tablet 25 mg PO BID RF: 0 famotidine 10 mg Tablet 10 mg PO BID RF: 0 morphine 100 mg Tablet Extended Release 100 mg PO Q12H RF: 0 Follow up/Referrals: Leeann Lane [Primary Care Provider] - Lauren Gross MD [Physician] - Diet/Activity/Treatments Diet: Diet as Tolerated Activity: Weight bear as tolerated, posterior hip precautions. Frequent short walks and ankle pumps. Cold/Heat Therapy: Ice packs as needed. Allow skin to return to room temp between icing. Skin/Wound/Dressing Care Report to your healthcare provider any signs of infection, such as:: chills, fever, night sweats, unusual drainage and unusual redness Dressing: Dressing will remain in place until your 2 week postop. Do not allow battery pack to become wet. Batteries will likely run out in ~1 week. At that point you can unscrew the battery pack and cut the cord to a length that is convenient for you. Visit Report/Discharge Packet Instructions: DI for Hip Replacement Discharge Data Primary Care Provider: Leeann Lane Attending Provider: Lauren Gross Admit Date/Time: 01/09/20 12:58 Quality VTE Deep Vein Thrombosis/Pulmonary Embolism Present on Admission: No
[2020-01-10] MEDS: CALCIUM CITRATE 200 MG TABLET PO (09:20)
[2020-01-10] MEDS: glipiZIDE XL 5 MG TAB PO (09:20)
[2020-01-10 09:22] VITALS: BP 155/66; PULSE 69
[2020-01-10] MEDS: lisinopriL 20 MG TABLET 40 MG PO (09:22)
[2020-01-10] MEDS: CHOLECALCIFEROL (VITAMIN D3) 1,000 UNIT TABLET 2000 UNIT PO (09:25)
[2020-01-10] MEDS: METOPROLOL IR 25 MG TABLET PO (09:25)
--- NOTE | 2020-01-10 10:37 | PT.IPTN ---
Current Diagnoses Unilateral primary osteoarthritis, right hip (01/09/20) Surgery Performed Operation Date: 01/08/20 10:45 Actual Procedures p Total Hip Arthroplasty(Right) - Lauren Gross MD Physical Therapy Treatment Note M2 PT-IP Current Condition Start: 01/08/20 15:28 Freq: NEEDED Status: Active Protocol: Document 01/08/20 16:59 AW (Rec: 01/08/20 17:28 AW [id number]) Physical Therapy Current Condition Current Condition Evaluation Date 01/08/20 Treatment Diagnosis R MARY with posterior approach; difficulty in walking Onset Date 01/08/20 Precautions Posterior Hip Precautions No Hip Flexion > 90 degrees,No Hip Internal Rotation,No Hip Adduction Weight Bearing Status Weight Bearing Status Weight Bear as Tolerated M3 PT-IP Subjective Start: 01/08/20 15:28 Freq: NEEDED Status: Active Protocol: Document 01/10/20 10:10 KS (Rec: 01/10/20 11:34 KS [id number]) Subjective Physical Therapy Visit Type Type Treatment Note Visit Start Time 10:10 Visit Stop Time 10:37 Total Visit Minutes 27 Number of MERIT SYSTEM DIRECTOR Visits 3 Physical Therapy Visit Comments Patient Comments Pt agreeable to work w/ therapy and present during treatment. M4 PT-IP Mobility and Gait Start: 01/08/20 15:28 Freq: NEEDED Status: Active Protocol: Document 01/10/20 10:10 KS (Rec: 01/10/20 11:34 KS [id number]) PT-Bed Mobility Assessment Supine to Sit Supine to Sit Contact Guard Assistance,1 Person Assistance,Head of Bed Elevated,Bedrails Sit to Supine Sit to Supine Minimal Assistance,1 Person Assistance,Head of Bed Elevated,Bedrails Scooting Scooting to Edge of Bed Contact Guard Assistance PT-Transfer Assessment Sit to and From Stand Sit to and from Stand Contact Guard Assistance,1 Person Assistance,Use of Upper Extremities Equipment Transfer Assistive Device Gait Belt,Front Wheeled Walker Orthotic/Prosthetic Devices or Brace: No Transfers Transfer Destination Bed Transfer Technique pt ambulated w/ FWW Transfer Ability Level of Assist Contact Guard Assistance,1 Person Assistance,Use of Upper Extremities Comments Mobility Comments Pt in bed upon arrival from therapy w/ present for caregiver training. Pt CGA for sup<>Sit w/ HOB elevated and pt confirms he will sleep in lift chair initially when at home. CGA for scooting to EOB w/ gait belt self assist RLE. Pts applied gait belt successfully and provided CGA for pt sit<>Stand w/ FWW. Pt then ambulated ~50 ft w/ FWW and CGA by pts . Pt returned to room and bed, Min A for sit<>sup for LE guidance into bed which was able to complete successfully. Pt and state they feel safe to return home later this afternoon. Gait Assessment Gait Gait Assistance Required: Contact Guard Assist,1 Person Assist Distance (Feet) 50 Assistive Devices Assistive Device Gait Belt,Front Wheeled Walker Orthotic/Prosthetic Devices or Brace: No Gait Deviations General Gait Pattern Antalgic,Decreased Stride Length,Decreased Feet Clearance Factors Limiting Gait Function Factors Limiting Gait Function Decreased Activity Tolerance, Decreased Strength,Difficulty Following Directions,Limited Range of Motion,Pain,Poor Balance,Poor Safety Awareness Comments Gait Comments Pt able to tolerate ~50 ft ambulation w/ FWW and CGA provided by . PT ambulated w/ decreased stride and foot clerance w/ cues for heel toe walking and R quad activation. Pt relied heavily on BUE for weight bearing on FWW and reported fatigue after ~50 ft. Stair Climbing Assessment Comments Stair Climbing Comments Not assessed. Pt does not need to climb stairs at home. PT-Balance Assessment Sitting Balance and Reactions Static Sitting Balance Ability Good Dynamic Sitting Balance Ability Fair Standing Balance and Reactions Static Standing Balance Ability Fair Dynamic Standing Balance Ability Fair Device Used FWW M5 PT-IP Objective Assessments Start: 01/08/20 15:28 Freq: NEEDED Status: Active Protocol: Document 01/08/20 16:59 AW (Rec: 01/08/20 17:28 AW [id number]) Orientation Orientation/Cognition Level of Alertness Alert Orientation Name,Day of Week,Place, Situation Language Function Ability No Deficits Noted Safety Awareness Decreased Safety Awareness Memory Description No Deficits Noted Gross Range of Motion Lower Extremity ROM Assessment Right Impaired Strength Lower Extremity Strength Assessment Bilaterally Impaired Hip L 4-/5; R 3-/5 Knee L 4/5; R 4-/5 Ankle B 4-/5 Sensation Assessment Sensation Gross Sensation Right LE Impaired Comments Sensation Comments Pt reports dull sensation to plantar surface of right foot. Muscle Tone Muscle Tone WNL Yes M6 PT-IP Treatment Start: 01/08/20 15:28 Freq: NEEDED Status: Active Protocol: Document 01/10/20 10:10 KS (Rec: 01/10/20 11:34 KS [id number]) Physical Therapy Treatment Education Education Provided Precautions,Weight Bearing Status,Post-Op Packet,Safety Other Treatments Other Treatment Performed Completed caregiver training w / pts . M7 PT-IP Assessment and Plan Start: 01/08/20 15:28 Freq: NEEDED Status: Active Protocol: Document 01/10/20 10:10 KS (Rec: 01/10/20 11:34 KS [id number]) PT Summary Assessment and Plan Potential Rehabilitation Potential Fair Status of Condition at Evaluation Evolving Summary Impairments Pain,ROM,Strength,Balance,Bed Mobility,Transfers,Gait, Activity Tolerance Progress Towards Goals Slow Progress due to Pain,Slow Progress due to Medical Issues,Slow Progress due to Activity Tolerance Assessment Summary Pt CGA to Min A for bed mobility, CGA for sit<>Stand and CGA for ambulation w/ FWW. Completed caregiver training w/ pts who was able to provide pt w/ appropriate assist and cues throughout treatment. Pt tolerated ~50 ft ambulation w/ FWW and heavy reliance on BUE for support. Pt and confirm pt will only need to ambulated ~20 f t to get into house and pt will sleep in lift chair. Pt will benefit from outpatient rehab which he is set to begin on . Goals Bed Mobility Goal Standby Assistance Transfer Goal Standby Assistance,Front Wheeled Walker Gait Goal Standby Assistance,Front Wheel Walker Gait Distance 120 Days to Meet Goals 5 Frequency of Treatment Frequency Of Treatment Twice a Day Treatment Plan Physical Therapy Treatment Plan Bed Mobility Training,Transfer Training,Gait Training, Therapeutic Exercise,Balance Retraining,Post Op Education, Discharge Planning,Hot or Cold Pack,Neuromuscular Re-ed, Coordination Retraining,Manual Therapy Recommendations To Nursing Amount of Assist Needed 1 Person Assist Discharge Recommendations PT Discharge Recommendations Home with Assistance,Home with / Assist,Outpatient PT Transportation Needs at Discharge Private Vehicle
--- NOTE | 2020-01-10 10:58 | PC.NURSE ---
Addendum entered by Erickson Baig R.N. 01/10/20 14:31: Pt d/c'd per orders. Instructions given. IVSL d/c'd intact. Pt escorted to private car via melonie Rodriguez CNA. Original Note: [facility] alert [facility] Pt states he ahs been up since 03:00. Pt in good spirits expecting to go home this afternoon. Orders for d/c. spoke with PT and Pt is cleared to go. attentive at bedside.
[2020-01-10 11:49] VITALS: BP 154/56; PULSE 68; RESP 19; TEMP 36.2; O2SAT 96
== END 2020-01-10 13:40 | disposition home or self-care (01) ==
LOC: OR 13:28 → AC 13:28
PROVIDERS: Admitting Provider Orthopaedic Surgery; PCP Internal Medicine; Referring Provider Orthopaedic Surgery; Visit Provider Orthopaedic Surgery
PROC: 0SR90JZ Replacement of Right Hip Joint with Synthetic Substitute, Open Approach (ICD-10-PCS; CPT 27130; principal; 2020-01-08 10:45)
DX: M16.11 Unilateral primary osteoarthritis, right hip (principal); E66.01 Morbid (severe) obesity due to excess calories; I10 Essential (primary) hypertension; E11.9 Type 2 diabetes mellitus without complications; G47.33 Obstructive sleep apnea (adult) (pediatric); Z68.41 Body mass index [BMI] 40.0-44.9, adult; Z79.84 Long term (current) use of oral hypoglycemic drugs
CPT/HCPCS: 27130; 36415; 72170; 73502; 82962; 85014; 85018; 97116; 97162; 97530; C1776; G0378; A9270; C9290; J0171; J0330; J0690; J1100; J1170; J2250; J2405; J2704; J3010

== ENCOUNTER 2024-08-12 06:07 | Day surgery (SDC) | payer OTHER, SELFPAY ==
[2020-01-08 16:50] VITALS: BMI 42.2
[2024-08-05 12:17] VITALS: BMI 42.7
[2024-08-12] VITALS (16 sets, daily range): BP systolic 111–155; BP diastolic 52–77; PULSE 70–93; RESP 10–20; TEMP 35.9–36.5; O2SAT 93–98; BMI 41.6
--- NOTE | 2024-08-12 06:00 | DI.RAD.S_ITS ---
PROCEDURE: XR KNEE RT 1TO2V INDICATIONS: TKA TECHNIQUE: 3 view(s) of the knee acquired. COMPARISON: [facility] Smith, CR, XR KNEE 4+ VIEWS RIGHT, 05/30/2024, 16:12. FINDINGS: Bones: Patient is status post knee joint arthroplasty. Hardware components are in expected positions. Visualized bony structures are intact. Soft tissues: Overlying postoperative changes are noted. IMPRESSION: Expected post-operative appearance of a knee arthroplasty. Dictated by: Jamil Baez M.D. on 08/12/2024 at 11:21 Approved by: Jamil Baez M.D. on 08/12/2024 at 11:22
[2024-08-12] MEDS: VANCOMYCIN 1,000 MG in SODIUM CHLORIDE 0.9% 250 ML 250 MG IV (07:06)
[2024-08-12] MEDS: ACETAMINOPHEN 325 MG TABLET 975 MG PO (07:07)
[2024-08-12] MEDS: CELECOXIB 200 MG CAPSULE 400 MG PO (07:07)
[2024-08-12] MEDS: LACTATED RINGERS 1,000 ML 42 ML IV (07:22)
--- NOTE | 2024-08-12 07:39 | PM.PREOP ---
Pre-operative Note Interval Note History & Physical reviewed/Exam performed by Physician: Yes Changes to H&P: No
--- NOTE | 2024-08-12 07:40 | PM.OP.1 ---
Operative Date/Time/Diagnoses Date of procedure: 08/12/24 Time of procedure: 08:00 Pre-op diagnosis: right knee OA, H/O multiple surgeries and patellectomy Post-op diagnosis: same Procedure & Clinicians Procedure: Right total knee arthroplasty Same procedure(s) as scheduled: Yes Indications: The patient has had progressively worsening right knee pain with radiographic changes consistent with arthritis. Non-operative management has failed and the patient has requested total knee replacement. The risks, benefits and alternatives to surgery were discussed with the patient prior to proceeding. Risks discussed included, but were not limited to, failure to relieve pain, stiffness, infection, nerve damage, deep venous thrombosis, pulmonary embolism, stroke, coma, heart attack, permanent paralysis and , as well as the potential need for eventual revision of the prosthetic. Has a history of multiple surgeries including a patellectomy in the past. He also has chronic pain issues. Surgeon: Lauren Gross Security System Analyst: Herbert Simons Anesthesia Type: General and Peripheral nerve block Operative Notes Findings: Severe right knee osteoarthritis, acceptable stability and bone Closure Type: primary Specimen(s): none sent Prosthetic devices, grafts, tissues, transplants, or devices: Umang BCS 2 Gross and Nephew size 8 femur, size 6 tibia, size 9 poly Applied: none Estimated Blood Loss (mL): 250 Blood products transfused: none Tourniquet time (min): 85 Procedure in detail: The patient was seen in the pre-operative area, where the patient identified the right knee as the operative site and this was marked with my initials. The patient received pre-operative antibiotics, and was taken to the operating room and placed on the operative table in the supine position. After satisfactory anesthesia, a motion and time study teacher out was performed. The right leg was encircled with a tourniquet about the proximal thigh, and the leg was prepared from the toes to the tourniquet with ChloroPrep in the usual fashion and draped through sterile drapes. The leg was elevated and exsanguinated with Eschmark bandage and the tourniquet inflated to [250] mmHg pressure. A PA was used during the procedure and was essential for intraoperative retraction and safe implantation of the components. The knee was approached through an approximately 22 cm incision centered over the patella and carried into the knee through a medial parapatellar arthrotomy. Portion of the medial and lateral meniscus was resected. Soft tissue was carefully mobilized and the extensor mechanism was carefully mobilized. He had substantial scar formation and a prior patellectomy. A small amount of additional medial and lateral meniscus was resected. Four pins were placed for Cori assisted navigation. The distal femur was resected with the Cori robotic bur. It looked like an appropriate distal femoral cut and the cut was made without difficulty. The rotation was assessed and the appropriate size femoral guide was placed on the distal femur and finishing cuts were made. There was no evidence of notching. The anterior, posterior and chamfer cuts were then made. The posterior osteophytes and soft tissues were then removed. The posterior capsule was injected with part of a mixture of 60 ml 0.25% Marcaine mixed with 20 ml Exparel for post operative pain control. The remainder of this mixture was injected into the capsule and subcutaneous tissues during cement curing. The tibial guide was meticulously navigated. With tibial cut was made without difficulty. He did have a prominent tibial tubercle. The patient was placed in extension residual medial and lateral meniscus as well as any residual bone was carefully resected. [No] additional tibia was resected. Hemostasis was achieved especially posteriorly. Additional local was injected into the posterior capsule. The extension gap was assessed. The femoral component was trial was placed and the notch was finished. Trial tibial and femoral components were then placed and the knee placed through a range of motion. Range of motion was [0-130], with good stability throughout the range. The trials were then removed, and the tibia was finished. The bone was prepared with pulsatile lavage, and dried with a sponge. Cement was applied and the final prosthetics placed. Excess cement was removed during and after cement curing. A brief Betadine soak was performed. After confirming there was no extruded cement posteriorly, the final tibial insert was placed. A more constrained poly was used because of the prior patellectomy. The knee was copiously irrigated and the tourniquet deflated. Hemostasis was obtained with the Bovie cautery. The capsule was closed with interrupted # 1 Vicryl suture. The subcutaneous layer was closed with barbed sutures, and the skin with a running 3-0 V-Lock suture and Surgical glue. An Aquacel Ag dressing was applied and the patient was taken to recovery having tolerated the procedure well. Complications: none Post-operative Condition: stable Disposition: Acute Care Plan for aftercare: The patient will be maintained on a standard total knee replacement protocol with weight bearing as tolerated. The patient will receive aspirin and sequential compression devices for DVT prophylaxis. The patient will be discharged home when safe for the home environment. He has significant medical problems including diabetes and chronic pain and significant more than 20 year opioid tolerance. I anticipate he will need inpatient status for several days in order to adequately medically stabilize and be safe for discharge to home. He also has morbid obesity and some component of sleep apnea.
--- NOTE | 2024-08-12 07:48 | SUR.PREOP ---
Block start time 0742 with a time out at 0740 . Monitoring initiated and maintained throughout procedure. Oxygen given per anesthesia provider's instructions. Patient remained stable throughout procedure, no adverse reactions noted. Block end time 0744.
[2024-08-12] MEDS: TRANEXAMIC ACID 1,000 MG VIAL 1000 MG INJ ×2 (07:55→09:48)
[2024-08-12] MEDS: CEFAZOLIN VIAL 3 GM in SODIUM CHLORIDE 0.9% 100 ML IV ×3 (07:55→21:53)
--- NOTE | 2024-08-12 08:19 | SUR.OPER ---
Supine on padded OR bed. Pillow under head, arms secured on padded armboards <90 degree abduction. Safety belt across torso. Non-operative leg secured with tape over blanket over lower leg. Operative leg secured in DeMayo/Dinesh/Nathe positioner. Foam padded brace at thigh of operative leg. CLARA Anaya, anesthesia in room at time of positioning. All pressure points padded, final position approved by
[2024-08-12] MEDS: BUPIVACAINE LIPOSOME 266 MG/20 ML VIAL INJ (08:48)
[2024-08-12] MEDS: BUPIVACAINE 0.25% W/ EPI 30 ML VIAL 60 ML INJ (08:48)
[2024-08-12] MEDS: LACTATED RINGERS 1,000 ML 100 ML IV ×2 (12:49→21:52)
[2024-08-12] MEDS: ACETAMINOPHEN 325 MG TABLET 650 MG PO (13:34)
[2024-08-12] MEDS: IBUPROFEN 400 MG TABLET PO ×2 (15:25→21:45)
[2024-08-12] MEDS: HYDROMORPHONE 2 MG TABLET PO (15:27)
--- NOTE | 2024-08-12 16:35 | PT.IIE ---
Current Diagnoses Unilateral primary osteoarthritis, right knee (08/12/24) Surgery Performed Operation Date: 08/12/24 07:45 Actual Procedures p Total Knee Arthroplasty - Robot(Right) - Lauren Gross MD Surgical History (Last Updated 08/05/24 @ 12:20 by Marilyn Lomax, RN) History of arthroplasty of left knee History of arthroscopy of both knees History of carpal tunnel surgery of left wrist (08/13/17) History of lumbar surgery History of total right hip replacement (01/09/20) Hx of cholecystectomy Hx of fusion of cervical spine Hx of hand surgery Hx of tonsillectomy Status post trigger finger release Medical History (Last Updated 08/05/24 @ 14:15 by Marilyn Lomax, JOSE) Anxiety Darden's esophagus Chronic pain Cirrhosis of liver 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 Depression Diabetes History of ETOH abuse HTN (hypertension) Hyperlipidemia MRSA (methicillin resistant Staphylococcus aureus) Numbness Pain management contract agreement Paroxysmal A-fib Rash Sleep apnea with use of continuous positive airway pressure (CPAP) Physical Therapy Inpatient Evaluation/Re-Eval M1 PT/OT-IP Prior Functional Status Start: 08/12/24 17:33 Freq: NEEDED Status: Active Protocol: Document 08/12/24 16:35 AB (Rec: 08/12/24 17:52 AB [id number]) Medical Review Prior Functional Status Medical History Yes Reviewed Communication able to make needs known Mobility and Gait pt stated that he was modified independent with all mobilities and ambulation using a FWW; stated that he has been using a FWW for ~ 1 year now due to knee pain; was not using any assistance prior to that but occasionally uses a SPC Social History Household Members spouse Living Arrangements Mobile home Number of Floors ( One Floor Floors) Number of Stairs To has no steps to enter the house Enter/Railing? Home Environment High Toilet,Walk in Shower Home Equipment Front Wheel Walker,Straight Cane,Shower Seat without Backrest,Hand Held Shower,Lift Recliner,Grab Bars Near Toilet,Grab Bars In Shower Additional Social spouse will be taking a family leave to assist pt at History Comment home pt has an adjustable bed with L side grab bars M2 PT-IP Current Condition Start: 08/12/24 17:33 Freq: NEEDED Status: Active Protocol: Document 08/12/24 16:35 AB (Rec: 08/12/24 17:52 [id number]) Physical Therapy Current Condition Current Condition Evaluation Date 08/12/24 Treatment Diagnosis s/p R TKA; difficulty in walking Onset Date 08/12/24 M3 PT-IP Subjective Start: 08/12/24 17:33 Freq: NEEDED Status: Active Protocol: Document 08/12/24 16:35 AB (Rec: 08/12/24 17:52 AB [id number]) Subjective Physical Therapy Visit Type Type Initial Evaluation Visit Start Time 16:35 Visit Stop Time 17:25 Number of [employer] Visits 0 Physical Therapy Visit Comments Patient Comments agreeable to do PT Therapy Pain Assessment Pain When Pain Assessed At Rest Pain Present Pain Present Pain Reported Location Right knee Intensity 6 Scale Used Numeric (0 - 10) Pain Behaviors Facial Grimacing,Guarding Pain Management Apply Cold,Distraction,Elevation,Modification of Techniques Treatment,Re-positioning,Timing of Activity with Medications M4 PT-IP Mobility and Gait Start: 08/12/24 17:33 Freq: NEEDED Status: Active Protocol: Document 08/12/24 16:35 AB (Rec: 08/12/24 17:52 [id number]) PT-Bed Mobility Assessment Supine to Sit Supine to Sit Moderate Assistance PT-Transfer Assessment Sit to and From Stand Sit to and from Minimal Assistance,1 Person Assistance,Use of Upper Stand Extremities Equipment Transfer Assistive Gait Belt,Front Wheeled Walker Device Orthotic/Prosthetic No Devices or Brace: Transfers Transfer Destination Chair Transfer Technique Stand Step Pivot Transfer Ability Level of Assist Minimal Assistance,Moderate Assistance,1 Person Assistance,Use of Upper Extremities Comments Mobility Comments pt in bed and spouse in room. obtained PLOF and home set up. completed heel slides prior to mobility. BP: 131/68, O2 sat: 95% and GA: 77. pt completed supine to sit mod A to move RLE to EOB. pt used bed rail to assist. pt able to sit on EOB SBA. BP: 144/80. completed sit to stand min A and cues. initiated ambulation using FWW requiring min to mod A and cues for R quads activation. pt requested to just sit on the chair and declined further ambulation. positioned pt on the chair. call light and table placed within reach. ice pack provided. post-op folder provided to pt. Gait Assessment Gait Gait Assistance Minimum Assistance,Moderate Assistance Required: Distance (Feet) 2 Able to Maintain Yes Weight Bearing Status During Gait Assistive Devices Assistive Device Gait Belt,Front Wheeled Walker Orthotic/Prosthetic No Devices or Brace: Gait Deviations General Gait Pattern Antalgic,Decreased Stride Length,Decreased Feet Clearance,Step-to Gait Factors Limiting Gait Function Factors Limiting Decreased Activity Tolerance,Decreased Strength, Gait Function Difficulty Following Directions,Limited Range of Motion ,Pain,Poor Balance,Poor Safety Awareness PT-Balance Assessment Sitting Balance and Reactions Static Sitting Normal Balance Ability Dynamic Sitting Good Balance Ability Standing Balance and Reactions Static Standing Fair Balance Ability Dynamic Standing Fair Balance Ability Device Used FWW M5 PT-IP Objective Assessments Start: 08/12/24 17:33 Freq: NEEDED Status: Active Protocol: Document 08/12/24 16:35 AB (Rec: 08/12/24 17:52 AB [id number]) Orientation Orientation/Cognition Level of Alertness Alert Orientation Name,Place,Situation Language Function No Deficits Noted Ability Safety Awareness Decreased Safety Awareness Memory Description No Deficits Noted Gross Range of Motion Lower Extremity ROM Impairments R knee : 20-90 deg Strength Lower Extremity Strength Assessment Right Impaired Hip 4-/5 Knee 3+/5 Coordination Assessment Gross Coordination Gross Coordination WNL Sensation Assessment Sensation Gross Sensation WNL Muscle Tone Muscle Tone WNL Yes M6 PT-IP Treatment Start: 08/12/24 17:33 Freq: NEEDED Status: Active Protocol: Document 08/12/24 16:35 AB (Rec: 08/12/24 17:52 AB [id number]) Physical Therapy Treatment Exercises Exercises Heel Slides Education Education Provided Precautions,Weight Bearing Status,Post-Op Packet,Safety M7 PT-IP Assessment and Plan Start: 08/12/24 17:33 Freq: NEEDED Status: Active Protocol: Document 08/12/24 16:35 AB (Rec: 08/12/24 17:52 AB [id number]) PT Summary Assessment and Plan Potential Rehabilitation Fair Potential Status of Condition Evolving at Evaluation Summary Impairments Pain,ROM,Strength,Balance,Coordination,Sensation,Tone, Cognition,Bed Mobility,Transfers,Gait,Activity Tolerance Assessment Summary pt is a 64 y/o M s/p R TKA POD 0. pt is WBAT on RLE. pt requiring mod A for bed mobility and min to mod A for transfers using FWW and ambulation using FWW but pt only was able to take a few steps to transfer. pt lives with spouse and spouse. will conduct caregiver training when appropriate. pt has outpt PT set up. Goals Bed Mobility Goal Independent Transfer Goal Independent,Front Wheeled Walker Gait Goal Independent,Front Wheel Walker Gait Distance 100 Days to Meet Goals 5 Frequency of Treatment Frequency Of Twice a Day Treatment Treatment Plan Physical Therapy Bed Mobility Training,Transfer Training,Gait Training, Treatment Plan Therapeutic Exercise,Balance Retraining,Post Op Education,Discharge Planning,Hot or Cold Pack, Neuromuscular Re-ed,Coordination Retraining,Manual Therapy Weight Bearing Status Weight Bearing Weight Bear as Tolerated Status Allowed Weight RLE WBAT Bearing Amount ( enter % or #) (%) Recommendations To Nursing Amount of Assist 1 Person Assist Needed Discharge Recommendations PT Discharge Home with Assistance,Outpatient PT Recommendations Transportation Needs Private Vehicle at Discharge - PT assist 1
--- NOTE | 2024-08-12 16:55 | OT.IPNOTE ---
Pt working with PT, to check on pt tomorrow for OT eval.
[2024-08-12] MEDS: INSULIN LISPRO 100 UNIT/ML 3ML VIAL SUBCUT ×2 (17:20→21:58)
[2024-08-12] MEDS: MORPHINE 4 MG/ML INJ 3 MG IV ×2 (17:24→23:45)
[2024-08-12] MEDS: CHOLECALCIFEROL (VITAMIN D3) 1,000 UNIT TABLET 2000 UNIT PO (21:42)
[2024-08-12] MEDS: buPROPion SR 150 MG TAB PO (21:43)
[2024-08-12] MEDS: ASPIRIN EC 81 MG TABLET PO (21:43)
[2024-08-12] MEDS: ATORVASTATIN 20 MG TABLET 10 MG PO (21:43)
[2024-08-12] MEDS: GABAPENTIN 300 MG CAPSULE 600 MG PO (21:44)
[2024-08-12] MEDS: METOPROLOL IR 25 MG TABLET PO (21:44)
[2024-08-12] MEDS: OXYCODONE IR 5 MG TABLET 15 MG PO (21:44)
[2024-08-12] MEDS: FAMOTIDINE 20 MG TABLET 10 MG PO (21:44)
[2024-08-12] MEDS: DOCUSATE 100 MG CAPSULE PO (21:44)
[2024-08-12] MEDS: INSULIN GLARGINE 100 UNIT/ML 3ML PEN 40 UNIT SUBCUT (21:57)
[2024-08-13] MEDS: MORPHINE 4 MG/ML INJ 3 MG IV (05:01)
[2024-08-13 05:03] LABS: Hematocrit 37.2 % (41-53); Hemoglobin 12.1 g/dL (13.5-17.5)
--- NOTE | 2024-08-13 07:39 | PM.DS.1 ---
History of Present Illness History of Present Illness Chief complaint: R TKA *OPB* Narrative: He tolerated the procedure without complication overnight. He has multiple medical problems including sleep apnea, diabetes, morbid obesity and chronic pain syndrome. He did require some IV narcotics overnight. Discharge Providers Provider Discharge Date: 08/13/24 Primary care physician: Leeann Lane MD Consults: 08/12/24 06:00 Consult to Anesthesiology Routine Comment: Consulting Provider: Anesthesiologist Reason for consultation: Regional block for post operative pain control Has provider been notified: No 08/12/24 11:50 Consult to Discharge Planning Routine Comment: Consult to Occupational Therapy Evaluate & Treat Comment: Physician Instructions: Evaluate and treat Consult to Physical Therapy Evaluate & Treat Comment: Physician Instructions: postop TKA protocol Discharge provider: Lauren Gross MD Summary Hospital Course Discharge Diagnosis: Severe right knee OA. Right total knee arthroplasty. Morbid obesity. Diabetes. Sleep apnea. Chronic opioid dependency Hospital Course: Patient tolerated the procedure well. He was mobilized with physical therapy and nursing. He did require some supplemental oxygen and also IV narcotics for adequate pain control. He was mobilized with physical therapy. He was discharged to home when he was felt to be stable for discharge. Status at Discharge Cognitive/behavioral status at discharge: oriented Functional status at discharge: uses cane/walker Overall status at discharge: patient is progressing back to baseline Time Spent with Patient Time spent: Less than 30 minutes Exam Vital Signs (past 8 hours): Fraction of Inspired Oxygen 28 SaO2/FiO2 Ratio 350 Oxygen Delivery Method Nasal Cannula Oxygen Flow Rate 2 Narrative Exam Narrative: He is alert he is resting comfortably in bed he is able to do a straight leg raise his O2 sat is 90 8 on oxygen supplementation. His dressing is intact. His calves are soft he is neurologically intact distally Objective Labs 08/13/24 04:50 Labs: Laboratory Results - last 24 hr 08/13/24 04:50 Hgb 12.1 L Hct 37.2 L PFSH Medical History (Updated 08/05/24 @ 14:15 by Marilyn Lomax RN) Pain management contract agreement History of ETOH abuse Anxiety MRSA (methicillin resistant Staphylococcus aureus) Chronic pain Depression Rash Diabetes Darden's esophagus Hyperlipidemia HTN (hypertension) Paroxysmal A-fib Sleep apnea with use of continuous positive airway pressure (CPAP) Numbness Cirrhosis of liver 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 Surgical History (Updated 08/05/24 @ 12:20 by Marilyn Lomax RN) History of total right hip replacement (01/09/20) Hx of tonsillectomy History of carpal tunnel surgery of left wrist (08/13/17) Status post trigger finger release Hx of hand surgery History of arthroscopy of both knees History of arthroplasty of left knee Hx of fusion of cervical spine History of lumbar surgery Hx of cholecystectomy Social History household members: spouse Smoking Status: Never smoker alcohol intake: former Discharge Assessment & Plan Assessment and Plan Assessment: He was mobilized with physical therapy and we worked with him until we had adequate pain control and he was felt to be safe for discharge to home. We worked on aggressive diabetic control and we reviewed his diabetic diet and optimizing diabetic control postoperatively. Plan of Treatment: Discharge to home after physical therapy and when adequately stabilized. Discharge Plan Discharge Plan Patient Disposition: Home Discharge orders & Medications Discharge Orders: Discharge (Order); Ordered 08/13/24 Ordered By: Herbert Simons Prescriptions: Continued oxycodone 15 MG tablet 15 mg PO Q12H Qty: 0 glipizide 10 MG tablet extended release 24hr 5 mg PO AMCC Qty: 0 metformin 850 MG tablet 850 mg PO BIDCC Qty: 0 insulin glargine U-300 conc [Toujeo SoloStar U-300 Insulin] 300 UNIT/1 ML insulin pen 40 unit SQ QPM Qty: 0 Patient Comments: takes approx 1800 bupropion HCl [Wellbutrin SR] 150 MG tablet extended release 12 hr 150 mg PO BID Qty: 0 gabapentin [Neurontin] 300 MG capsule 600 mg PO BID Qty: 0 lovastatin 20 MG tablet 20 mg PO HS Qty: 0 lisinopril 40 MG tablet 40 mg PO QDAY Qty: 0 triamcinolone acetonide 0.1 % ointment 1 escobar Topical PRN PRN (Reason: rash to knuckles, elbow) Qty: 0 multivitamin [Multiple Vitamins] 1 EACH tablet 1 tab PO QDAY Qty: 0 calcium citrate 250 MG tablet 250 mg PO QDAY Qty: 0 cholecalciferol (vitamin D3) [Vitamin D3] 2,000 UNIT capsule 2,000 iu PO BID Qty: 0 aspirin 81 mg Tablet,Delayed Release (Dr/Ec) 81 mg PO DAILY metoprolol tartrate 25 mg Tablet 25 mg PO BID insulin glargine-yfgn 100 unit/mL (3 mL) insulin pen 30 unit SUBCUT QAM insulin glargine-yfgn 100 unit/mL (3 mL) insulin pen 40 unit SUBCUT QPM liraglutide 0.6 mg/0.1 mL (18 mg/3 mL) pen injector 0.6 mg SUBCUT DAILY hydrochlorothiazide 12.5 mg capsule 12.5 mg PO DAILY acetaminophen 325 mg Tablet 650 mg PO TID PRN (Reason: Pain) amlodipine 5 mg tablet 5 mg PO DAILY famotidine 10 mg Tablet 10 mg PO BID morphine 100 mg Tablet Extended Release 100 mg PO Q12H ibuprofen 400 mg Tablet 400 mg PO Q4H Qty: 40 0RF docusate sodium [DOK] 100 mg Capsule 100 mg PO BID Qty: 40 0RF hydromorphone 4 mg Tablet 4 mg PO Q4HR PRN (Reason: Pain, Severe (7-10)) Qty: 20 0RF Follow up/Referrals: Leeann Lane MD [Primary Care Provider, Pediatrics] Diet/Activity/Treatments Diet: Diet as Tolerated Diet comment: Work on optimizing diabetic control Activity: Ambulate multiple times a day. Work on knee range of motion. Be cautious to avoid falls. Cold/Heat Therapy: Use ice multiple times a day. Skin/Wound/Dressing Care Skin care: Okay to shower. Remove Suhas wrap in 48 hours and leave olga dressing on. Report to your healthcare provider any signs of infection, such as:: chills, fever, night sweats, increased pain, unusual drainage and unusual redness Dressing: Leave dressing on. Visit Report/Discharge Packet Instructions: DI for Knee Replacement, DI for Prescription Opioid Use Stand Alone Forms: Patient Portal/API, Surgery Discharge Print Language: Azeri Discharge Data Primary Care Provider: Leeann Lane Attending Provider: Lauren Gross VTE Deep Vein Thrombosis/Pulmonary Embolism Present on Admission: No
[2024-08-13 08:29] VITALS: BP 145/76; PULSE 79; RESP 20; TEMP 36.9; O2SAT 98
--- NOTE | 2024-08-13 08:40 | OT.IP.EVAL ---
Current Diagnoses Unilateral primary osteoarthritis, right knee (08/12/24) Surgery Performed Operation Date: 08/12/24 07:45 Actual Procedures p Total Knee Arthroplasty - Robot(Right) - Lauren Gross MD Past Medical History (Last Updated 08/05/24 @ 14:15 by Marilyn Lomax, RN) Anxiety Dadren's esophagus Chronic pain Cirrhosis of liver 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 Depression Diabetes History of ETOH abuse HTN (hypertension) Hyperlipidemia MRSA (methicillin resistant Staphylococcus aureus) Numbness Pain management contract agreement Paroxysmal A-fib Rash Sleep apnea with use of continuous positive airway pressure (CPAP) Surgical History (Last Updated 08/05/24 @ 12:20 by Marilyn Lomax, RN) History of arthroplasty of left knee History of arthroscopy of both knees History of carpal tunnel surgery of left wrist (08/13/17) History of lumbar surgery History of total right hip replacement (01/09/20) Hx of cholecystectomy Hx of fusion of cervical spine Hx of hand surgery Hx of tonsillectomy Status post trigger finger release Occupational Therapy Inpatient Evaluation/Re-Eval M1 PT/OT-IP Prior Functional Status Start: 08/12/24 17:33 Freq: NEEDED Status: Active Protocol: Document 08/13/24 10:16 [facility] (Rec: 08/13/24 10:30 [facility] Desktop) Medical Review Prior Functional Status Medical History Yes Reviewed Communication able to make needs known Mobility and Gait pt stated that he was modified independent with all mobilities and ambulation using a FWW; stated that he has been using a FWW for ~ 1 year now due to knee pain; was not using any assistance prior to that but occasionally uses a SPC Activities of Daily Pt's having to assist with LB dressing at times Living and IADL's and does the meds and bills. Social History Household Members spouse Living Arrangements Mobile home Number of Floors ( One Floor Floors) Number of Stairs To has no steps to enter the house Enter/Railing? Home Environment High Toilet,Walk in Shower Home Equipment Front Wheel Walker,Straight Cane,Shower Seat without Backrest,Hand Held Shower,Lift Recliner,Grab Bars Near Toilet,Grab Bars In Shower Additional Social spouse will be taking a family leave to assist pt at History Comment home pt has an adjustable bed with L side grab bars M2 OT-IP Current Condition Start: 08/13/24 10:16 Freq: Status: Active Protocol: Document 08/13/24 10:16 [facility] (Rec: 08/13/24 10:30 [facility] Desktop) Occupational Therapy Current Condition Current Condition Evaluation Date 08/13/24 Treatment Diagnosis S/P R TKA M3 OT- IP Subjective and Pain Start: 08/13/24 10:16 Freq: Status: Active Protocol: Document 08/13/24 10:16 [facility] (Rec: 08/13/24 10:30 [facility] Desktop) OT- Subjective Occupational Therapy Visit Type Type Initial Evaluation Visit Start Time 08:40 Visit Stop Time 09:17 Occupational Therapy Visit Comments Patient Comments Pt agreed to get up and pt's present during OT eval. Patient/Caregiver TO go home. Goals OT Pain Assessment Pain When Pain Assessed At Rest Pain Present Pain Present Pain Reported Location Right knee Intensity 7 Scale Used Numeric (0 - 10) M4 OT- IP ADL's Start: 08/13/24 10:16 Freq: Status: Active Protocol: Document 08/13/24 10:16 [facility] (Rec: 08/13/24 10:30 [facility] Desktop) OT [id number] General Evaluation Self-Feeding Ability Independent OT ADL-Grooming Comments OT Grooming Comments Not observed. OT ADL-Oral Care Comments Oral Care Comments NOt observed. OT ADL-Dressing General Eval Lower Body Dressing Maximum Assistance Ability Comments OT Dressing Comments Pt has all LB dressing equipment from prior surgeries. Reminded pt best to dress the RLE first and take out last. OT ADL-Toileting Comments OT Toileting Suggested to take a urinal home to use and call his Comments to assist as needed. OT ADL-Bathing Comments OT Bathing Comments Spoke of care for the dressing during showering needs. M5 OT- IP IADL's Start: 08/13/24 10:16 Freq: Status: Active Protocol: Document 08/13/24 10:16 [facility] (Rec: 08/13/24 10:30 [facility] Desktop) OT-Instrumental Activities of Daily Living Home Safety Awareness Awareness of Need Good Awareness for Assistance at Home Medication Management Medication Caregiver Administers Management Money Management Money Management Caregiver Provides Assistance Meal Preparation Meal Preparation Caregiver Provides Assist Business Continuity Specialist Business Continuity Specialist Caregiver Provides Assist M6 OT- IP Functional Cognition Start: 08/13/24 10:16 Freq: Status: Active Protocol: Document 08/13/24 10:16 [facility] (Rec: 08/13/24 10:30 [facility] Desktop) Cognitive Factors Limiting Selfcare Function Cognitive Ability Level of Alertness Alert Patient Orientation Name,Place,Situation Attention Span Capable of Focused Attention,Capable of Sustained Ability Attention Ability to Follow Able to Follow One Step Commands Commands Cognitive Comments Cognitive Assessment Pt able to follow commands for ADL and mobility needs. Comments VC to slow down and be sure to tighten his right knee when use of the FWW as pt tires. In addition to keep the FWW close to him. OT- Vision and Hearing OT- Vision Assessment Visual Acuity Glasses All The Time Visual Attentiveness WFL Occular Pursuits WFL M7 OT- IP Mobility and Balance Start: 08/13/24 10:16 Freq: Status: Active Protocol: Document 08/13/24 10:16 [facility] (Rec: 08/13/24 10:30 [facility] Desktop) OT- Bed Mobility Assessment Sit to Supine Sit to Supine Assist Standby Assistance OT-Transfer Assessment Sit to and From Stand Sit to and from Minimal Assistance Stand Transfers Transfer Ability Minimal Assistance Technique Transfer Destination Bed,Chair Transfer Technique Stand Step Pivot Devices Transfer Assistive Gait Belt,Front Wheeled Walker Devices Comments Mobility Comments Able to educated pt's how to alfredo/doff the gait belt and how to assist pt to stand and walk around the bed. Pt unsteady on his feet and needing cues to tighten his RLE and take smaller steps. Pt states has 15 ft to get into his house and threshold. Pt will benefit from more practice with his and work on increasing his distance for ADL and mobility needs. OT- Balance Assessment Sitting Balance and Reactions Static Sitting Normal Balance Ability Dynamic Sitting Good Balance Ability Standing Balance and Reactions Static Standing Fair Balance Ability Dynamic Standing Fair Balance Ability M8 OT- IP Objective Assessments Start: 08/13/24 10:16 Freq: Status: Active Protocol: Document 08/13/24 10:16 [facility] (Rec: 08/13/24 10:30 [facility] Desktop) OT Gross Range of Motion Upper Extremity Range of Motion Assessment Within Functional Limits ROM Impairments grossly WFL OT Strength Upper Extremity Strength Assessment Within Functional Limits Comments Strength Comments WFL for needs M9 OT- IP Assessment and Plan Start: 08/13/24 10:16 Freq: Status: Active Protocol: Document 08/13/24 10:16 [facility] (Rec: 08/13/24 10:30 [facility] Desktop) OT Summary Assessment and Plan Potential Rehabilitation Excellent Potential Analytic Complexity Low at Evaluation Summary OT Impairments Pain,Balance,Functional Mobility,Dressing,Toileting, Bathing,Toilet Transfers,Shower Transfers,Activity Tolerance Progress Towards Progressing Toward Goals,Slow Progress due to Pain Goals Assessment Summary Pt low complexity and main barriers are pain, decreased activity tolerance, and needing safety cues for FWW use. Pt's trained to assist pt for transfers, bed mobility, and ADL needs. Pt just able to walk around the bed and became tired. Pt will go home when medically stable and and have 24/7 assist at home and outpt PT. Goals Self-Feeding Goal Independent Grooming Goal Independent Dressing Goal Independent,Grain Roaster,Sock Aid Toileting Goal Independent Bathing Goal Minimal Assistance Toilet Transfer Goal Independent Shower Transfer Goal Standby Assistance Days to Meet Goals 5 Frequency of Treatment Other frequency 5x/week Treatment Plan OT Treatment Plan ADL Training,Functional Mobility,Patient/Family Education,Discharge Planning Discharge Recommendations OT Discharge Home with 24/7 Assist Available,Outpatient PT Recommendations Transportation Needs Private Vehicle at Discharge
[2024-08-13] MEDS: CHOLECALCIFEROL (VITAMIN D3) 1,000 UNIT TABLET 2000 UNIT PO (09:20)
[2024-08-13] MEDS: hydroCHLOROthiazide 25 MG TABLET 12.5 MG PO (09:20)
[2024-08-13] MEDS: AMLODIPINE 5 MG TABLET PO (09:21)
[2024-08-13] MEDS: buPROPion SR 150 MG TAB PO (09:21)
[2024-08-13] MEDS: DOCUSATE 100 MG CAPSULE PO (09:21)
[2024-08-13] MEDS: lisinopriL 20 MG TABLET 40 MG PO (09:21)
[2024-08-13] MEDS: GABAPENTIN 300 MG CAPSULE 600 MG PO (09:21)
[2024-08-13] MEDS: ASPIRIN EC 81 MG TABLET PO (09:22)
[2024-08-13] MEDS: FAMOTIDINE 20 MG TABLET 10 MG PO (09:22)
[2024-08-13] MEDS: METOPROLOL IR 25 MG TABLET PO (09:22)
[2024-08-13] MEDS: MULTIVITAMIN 1 TABLET 1 TAB PO (09:22)
[2024-08-13] MEDS: METFORMIN HCL 500 MG TABLET PO (09:29)
[2024-08-13] MEDS: HYDROMORPHONE 2 MG TABLET 4 MG PO ×2 (09:29→15:17)
[2024-08-13] MEDS: INSULIN GLARGINE 100 UNIT/ML 3ML PEN 30 UNIT SUBCUT (09:31)
--- NOTE | 2024-08-13 11:03 | CM.DANOTE ---
Initial DCP Assessment Visit Note Reviewed EMR and team rounds for pt's medical status and updates. Met with pt/partner at bedside to introduce self and role, pt was found to be resting, pain was under control at the time of this visit. Pt lives modified independently with his partner in thier own home in [place]. His partner will also transport him home once he's medically cleared for d/c, likely this afternoon. He has worked with PT/OT and has been cleared for home d/c. No CM d/c needs are identified at this time. Payor: [facility] Adv Attending: Dr. Gross Pt is 64 year-old M post-op day 1 from a R-total knee arthroplasty surgery. He has a hx of chronic, worsening R-knee pain that has severely limited his mobility and able to interact in ADL's. He has done extensive OP PT without lasting pain benefit. Of note, he does have an outpatient pain contract with [facility] due to long-term, chronic back and knee pain and opiate dependence. He did have some elevated blood pressure earlier this morning, but is able to ambulate to the bathroom with minimal assistance. He does already have OP PT set up, as well as OP Ortho f/u. No further CM needs are indicated. Discharge Planning/Care Management CM Discharge Assessment Start: 08/12/24 06:24 Freq: Status: Active Protocol: Document 08/13/24 11:01 DPL (Rec: 08/13/24 11:03 DPL [id number]) Discharge Planning Assessment Assigned Discharge NATHAN Ford Advance Directives? No: Declines further information History Provided By Patient,Significant Other,Medical Record Has Patient been No admitted in last 30 days? Prior Living Mobile home Arrangements Household Members spouse Type of Relies on Others transporation used prior to admit Independent with ADL No: modified ind with a walker 's Is patient alert and Yes oriented? Needs Assistance Home Chores / Shopping With Caregiver for No Another Community Services Physical Therapy used prior to admission: DME Already Rented / Bath Bench,Elevated Toilet Seat,FWW / Walker,Cane Owned Patient/Family OP PT Therapy Preference Barriers to Yes Discharge Comment morbid obesity and long-term opiate dependence Discharge Plan Home Community Services Physical Therapy Transportation Significant Other Arrangement Referrals Initiated None needed Whiteboard Updated Yes in Patient Room with name and ext. # of Precinct Captain Review Status In Process Please Provide Date 08/13/24 Initial DC Assessment Was Performed Pre-Anesthesia Assessment Start: 08/05/24 12:17 Freq: Status: Active Protocol: Document 08/05/24 12:17 CAB (Rec: 08/05/24 13:46 CAB [id number]) Pre-Anesthesia Assessment PAC Comment Phone assess 08/05/24 Preferred Name Nahid Patient Information Phone Assessment Reviewed Via Assessment Completed Patient With Diagnostic Results BMP/CMP,CBC Comment Outside labs 07/31/24-EKG done per pt, not available at assess Primary Care Leeann [address] Provider Comment Clearance form 07/09/24 scanned and in surgery folder Seen Specialist in Yes Last 12 Months Specialist Seen Orthopedist Primary Language Grenadian Preferred Language Grenadian Air Vice Marshal Required No Height 182.88 cm Weight 142.882 kg Body Mass Index (BMI 42.7 ) Hearing Ability Normal Visual Assist Glasses Dentition Type Full- Upper & Lower Barriers to Learning None Other Aids Yes: CPAP Hx Anesthesia No: Hx of Darden's esophagus, cervical fusion, Pain Reactions contract Hx Family Anesthesia No Reaction Hx Malignant No Hyperthermia Hx Blood No Transfusions Hx Blood Transfusion No Reaction Anesthesia Review No 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 Does patient have No CAMPOS/SOB Hx Sleep Apnea Yes: BiPAP CPAP/BIPAP use prescribed and used routinely Will Bring CPAP/ Yes BIPAP DOS Currently Taking a Yes: Metoprolol Beta Jasmina Can You Climb a Yes Flight of Stairs Without SOB Hx Chest Pain No Hx SOB No Hx Syncope or No Dizziness Anti-Coagulant No Therapy Has a Arabic Professor No Cardiac Testing No Hx Pacemaker/ICD No Pacemaker Rep No Required? 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 Support System Spouse Does the Patient Yes Have Assistance After Surgery Patient Discharge Return Home Plan Description Comment Pt advised overnight length of stay per surgeon Feels Safe in Yes Current Environment Been Physically Hurt No or Threatened By a Person in Current Environment Do you have thoughts None of harming yourself or others? Are you currently No considering suicide? Do you have a plan No Plan to hurt yourself or others? Do You Have Any No Spiritual Beliefs That May Affect Your HC Choices? Do You Have Any No Cultural Practices That May Affect Your HC Choices? Who Can We Speak to Family, friends About Patient's Care Identifying Code for Declines to issue Release of Patient Information Health Care Proxy/ Rosario () Next of Kin Health Care Proxy [phone] Phone Number Emergency Contact Rosario Carmona () Name Emergency Contact [phone] Phone Number Advance Directives? No: Declines further information Power of Die Cast Supervisor No PAC Instructions Assistance for 24 hours post-op,Bring CPAP/BIPAP, Diabetes instructions,Durable medical equipment, Medications to take/avoid,Nasal antibiotic,No ETOH/ petroleum product on skin DOS,NPO,Pre-surgical wash, Sensory aids,Sturdy shoes/comfortable clothes,Do not bring valuables and remove jewelry
--- NOTE | 2024-08-13 11:13 | PC.NURSE ---
Addendum entered by Melissa Nguyễn R.N. 08/13/24 17:12: D/C orders received, Given home instructions w/understanding Pt escorted by staff via W/C to waiting vehicle D/C in stable post op status Addendum entered by Melissa Nguyễn R.N. 08/13/24 16:09: Pt sitting in chair, Awaiting to be D/C; need orders from Dr. Gross Dsg to knee DCI Med w/ Dilaudid w/ good relief. Call light w/in reach, pt calls appropriately for needs. Addendum entered by Melissa Nguyễn R.N. 08/13/24 12:38: CBG = 233 S/S coverage 3u given Original Note: Pt A/O Sat in chair for breakfast Worked with PT and did well Med w/ Dilaudid 4mg po at 0900 for discomfort w/good relief. Call light w/in reach, bed alarm on for pt safety.
--- NOTE | 2024-08-13 11:50 | PT.IPTN ---
Current Diagnoses Unilateral primary osteoarthritis, right knee (08/12/24) Surgery Performed Operation Date: 08/12/24 07:45 Actual Procedures p Total Knee Arthroplasty - Robot(Right) - Lauren Gross MD Physical Therapy Treatment Note M2 PT-IP Current Condition Start: 08/12/24 17:33 Freq: NEEDED Status: Active Protocol: Document 08/12/24 16:35 AB (Rec: 08/12/24 17:52 AB [id number]) Physical Therapy Current Condition Current Condition Evaluation Date 08/12/24 Treatment Diagnosis s/p R TKA; difficulty in walking Onset Date 08/12/24 M3 PT-IP Subjective Start: 08/12/24 17:33 Freq: NEEDED Status: Active Protocol: Document 08/13/24 11:50 AB (Rec: 08/13/24 13:27 AB [id number]) Subjective Physical Therapy Visit Type Type Treatment Note Visit Start Time 11:50 Visit Stop Time 12:15 Number of SHANK BREAKER Visits 0 Physical Therapy Visit Comments Patient Comments agreeable to do PT Therapy Pain Assessment Pain When Pain Assessed At Rest Pain Present Pain Present Pain Reported Location Right knee Intensity 6 Scale Used Numeric (0 - 10) Pain Management Distraction,Modification of Treatment,Re-positioning, Techniques Timing of Activity with Medications M4 PT-IP Mobility and Gait Start: 08/12/24 17:33 Freq: NEEDED Status: Active Protocol: Document 08/13/24 11:50 AB (Rec: 08/13/24 13:27 AB [id number]) PT-Bed Mobility Assessment Supine to Sit Supine to Sit Standby Assistance PT-Transfer Assessment Sit to and From Stand Sit to and from Contact Guard Assistance,1 Person Assistance,Use of Stand Upper Extremities Equipment Transfer Assistive Gait Belt,Front Wheeled Walker Device Orthotic/Prosthetic No Devices or Brace: Transfers Transfer Destination Toilet Transfer Technique ambulated Transfer Ability Level of Assist Minimal Assistance,1 Person Assistance,Use of Upper Extremities Comments Mobility Comments pt in bed. spouse in room. pt completed bed mobility supine to sit SBA. caregiver training conducted. spouse was able to put safety belt on pt. sit to stand CGA with spouse assisting. pt requesting to use the toilet. pt ambulated using FWW ~ 20 ft min A and cues for safety. educated spouse on how to assist and cue pt for safety. spouse was able to assist pt. pt wanting to use the toilet for awhile. call ilght provided. left pt with spouse. informed nurse and NAC. Gait Assessment Gait Gait Assistance Minimum Assistance,1 Person Assist Required: Distance (Feet) 20 Able to Maintain Yes Weight Bearing Status During Gait Assistive Devices Assistive Device Gait Belt,Front Wheeled Walker Orthotic/Prosthetic No Devices or Brace: Gait Deviations General Gait Pattern Antalgic,Decreased Stride Length,Decreased Feet Clearance Factors Limiting Gait Function Factors Limiting Decreased Activity Tolerance,Decreased Strength,Limited Gait Function Range of Motion,Pain,Poor Balance,Poor Safety Awareness M5 PT-IP Objective Assessments Start: 08/12/24 17:33 Freq: NEEDED Status: Active Protocol: Document 08/12/24 16:35 AB (Rec: 08/12/24 17:52 AB [id number]) Orientation Orientation/Cognition Level of Alertness Alert Orientation Name,Place,Situation Language Function No Deficits Noted Ability Safety Awareness Decreased Safety Awareness Memory Description No Deficits Noted Gross Range of Motion Lower Extremity ROM Impairments R knee : 20-90 deg Strength Lower Extremity Strength Assessment Right Impaired Hip 4-/5 Knee 3+/5 Coordination Assessment Gross Coordination Gross Coordination WNL Sensation Assessment Sensation Gross Sensation WNL Muscle Tone Muscle Tone WNL Yes M6 PT-IP Treatment Start: 08/12/24 17:33 Freq: NEEDED Status: Active Protocol: Document 08/13/24 11:50 AB (Rec: 08/13/24 13:27 AB [id number]) Physical Therapy Treatment Education Education Provided Safety M7 PT-IP Assessment and Plan Start: 08/12/24 17:33 Freq: NEEDED Status: Active Protocol: Document 08/13/24 11:50 AB (Rec: 08/13/24 13:27 AB [id number]) PT Summary Assessment and Plan Potential Rehabilitation Fair Potential Summary Impairments Pain,ROM,Strength,Balance,Coordination,Sensation,Tone, Cognition,Bed Mobility,Transfers,Gait,Activity Tolerance Progress Towards Slow Progress due to Activity Tolerance Goals Assessment Summary pt requiring CGA to min A with ambulation using FWW. spouse was able to safely assist pt with mobility during training. pt plans to go home and has outpt PT set up. Goals Bed Mobility Goal Independent Transfer Goal Independent,Front Wheeled Walker Gait Goal Independent,Front Wheel Walker Gait Distance 100 Days to Meet Goals 5 Frequency of Treatment Frequency Of Twice a Day Treatment Treatment Plan Physical Therapy Bed Mobility Training,Transfer Training,Gait Training, Treatment Plan Therapeutic Exercise,Balance Retraining,Post Op Education,Discharge Planning,Hot or Cold Pack, Neuromuscular Re-ed,Coordination Retraining,Manual Therapy Weight Bearing Status Weight Bearing Weight Bear as Tolerated Status Allowed Weight RLE WBAT Bearing Amount ( enter % or #) (%) Recommendations To Nursing Amount of Assist 1 Person Assist Needed Discharge Recommendations PT Discharge Home with Assistance,Outpatient PT Recommendations Transportation Needs Private Vehicle at Discharge - PT assist 1
[2024-08-13] MEDS: INSULIN LISPRO 100 UNIT/ML 3ML VIAL SUBCUT (12:14)
--- NOTE | 2024-08-27 07:42 | PC.NURSE ---
Addendum entered by Rosio Ford R.N. 08/27/24 07:49: Late entry 08/12/24- Error/ Correction- Patient given hydromorphone 4mg (2-2mg tabs) @ 21:40 Original Note: Late entry for 08/12/24: Patient given Hydromorphone 2mg @ 21:40.
== END 2024-08-13 17:13 | disposition home or self-care (01) ==
LOC: OR 06:08 → AC 06:09
PROVIDERS: PCP Internal Medicine; Referring Provider Internal Medicine; Visit Provider Orthopaedic Surgery
PROC: 0SRC0JZ Replacement of Right Knee Joint with Synthetic Substitute, Open Approach (ICD-10-PCS; CPT 27447; principal; 2024-08-12 07:45)
DX: M17.11 Unilateral primary osteoarthritis, right knee (principal); G89.18 Other acute postprocedural pain; M25.761 Osteophyte, right knee; E11.9 Type 2 diabetes mellitus without complications; G89.29 Other chronic pain; E66.9 Obesity, unspecified; G47.30 Sleep apnea, unspecified; Z68.41 Body mass index [BMI] 40.0-44.9, adult; Z79.84 Long term (current) use of oral hypoglycemic drugs; Z79.4 Long term (current) use of insulin
CPT/HCPCS: 27447; 20985; 36415; 64450; 73560; 82962; 85014; 85018; 87801; 97162; 97165; 97530; C1776; A9270; C1713; J0666; J0690; J1815; J2250; J2270; J2405; J2704; J3010; J3475; J3490